=== PATIENT | male | born 1960 | race Caucasian/White ===

== ENCOUNTER → 2017-10-06 | Day surgery (SDC) | payer MEDICARE ==
[~2017-10-06] MED LIST: ALBU8I INH; AMLO5 PO; ASPI81TA82 PO; ATOR10 PO; CIPR500T4 PO; COUM5TAB PO; ENOX80P SQ; FOLI1TAB PO; GLIM2TAB PO; HYDR-3580 PO; LISI40TA PO; METH2.5 PO; PRED5 PO; PROPOFOL 500 MG/50 ML BTL IV ONE; Z.0.WHEELELR
--- NOTE | 2017-10-06 10:33 | GIPROC ---
[facility] [address] [facility], [address] COLONOSCOPY PROCEDURE REPORT EXAM DATE: 10/06/2017 PATIENT NAME: Shawn Guerrero MR #: [id number] BIRTHDATE: 1960 ENDOSCOPIST: Taiwo Mariscal MD ORDER #: [id number] STERILE SUPERVISOR: David Rivera RN STATUS: outpatient INDICATIONS: The patient is a 57 yr old male here for a colonoscopy due to average risk patient for colon cancer PROCEDURE PERFORMED: Colonoscopy with polypectomy MEDICATIONS: None and Per Anesthesia. PREP QUALITY: fair ESTIMATED BLOOD LOSS: None CONSENT: The patient understands the risks and benefits of the procedure and understands that these risks include, but are not limited to: sedation, allergic reaction, infection, perforation and/or bleeding. Alternative means of evaluation and treatment include, among others: physical exam, x-rays, and/or surgical intervention. The patient elects to proceed with this endoscopic procedure. medical equipment was checked for proper function. Hand hygiene and appropriate measures for infection prevention was taken. After the risks, benefits and alternatives of the procedure were thoroughly explained, Informed consent was verified, confirmed and timeout was successfully executed by the treatment team. A digital exam revealed no abnormalities of the rectum The EC-3890Li ([id number]) endoscope was introduced through the anus and advanced to the cecum, which was identified by both the appendix and ileocecal valve. The instrument was then slowly withdrawn as the colon was fully examined. COLON FINDINGS: Two large medium sized smooth sessile polyps were found in the proximal transverse colon and sigmoid colon. A polypectomy was performed using snare cautery. The resection was complete and the polyp tissue was completely retrieved. The colon mucosa was otherwise normal. Retroflexed views revealed no abnormalities The scope was then completely withdrawn from the patient and the procedure terminated. PROCEDURE WITHDRAWAL TIME:11.7minutes ADVERSE EVENTS: There were no complications. IMPRESSIONS: 1. Two large medium sized sessile polyps were found in the proximal transverse colon and sigmoid colon; polypectomy was performed using snare cautery 2. The colon mucosa was otherwise normal 3. Retroflexed views revealed no abnormalities 4. Revealed no abnormalities of the rectum RECOMMENDATIONS: 1. Await biopsy results. Biopsy results will not be ready for 7-10 days. If you don't hear from us in two weeks, call our office for results. 2. Follow-up: GI Clinic PRN 3. Yearly hemoccult 4. High fiber diet RECALL: Return 3 years Colonoscopy Taiwo Mariscal MD eSigned: Taiwo Mariscal MD 10/06/2017 10:33 AM cc: shreyas renner M.D and Everardo Sanz [facility] [place]
--- NOTE | 2017-10-06 10:36 | GIPROC ---
[facility] [address] [facility], [id number] EGD PROCEDURE REPORT EXAM DATE: 10/06/2017 PATIENT NAME: Shawn Guerrero MR #: [id number] BIRTHDATE: 1960 ATTENDING: Taiwo Mariscal MD ORDER #: [id number] PRETZEL TWISTER: David Rivera RN STATUS: outpatient INDICATIONS: The patient is a 57 yr old male here for an EGD due to epigastric abdominal pain PROCEDURE PERFORMED: EGD w/ biopsy MEDICATIONS: None, Per Anesthesia, None, and Per Anesthesia. TOPICAL ANESTHETIC: CONSENT: The patient understands the risks and benefits of the procedure and understands that these risks include, but are not limited to: sedation, allergic reaction, infection, perforation and/or bleeding. Alternative means of evaluation and treatment include, among others: physical exam, x-rays, and/or surgical intervention. The patient elects to proceed with this endoscopic procedure. medical equipment was checked for proper function. Hand hygiene and appropriate measures for infection prevention was taken. After the risks, benefits and alternatives of the procedure were thoroughly explained, Informed consent was verified, confirmed and timeout was successfully executed by the treatment team. The patient was anesthetized with topical anesthesia and the EC-3890Li ([id number]) endoscope was introduced through the mouth and advanced to the second portion of the duodenum. Retroflexed views revealed no abnormalities The gastroscope was then slowly withdrawn and removed. ESOPHAGUS: There was LA Class A esophagitis noted. Multiple biopsies were performed. The endoscopy was otherwise normal. STOMACH: There was moderate and erosive gastritis in the gastric body. Multiple biopsies were performed. ADVERSE EVENTS: There were no complications. IMPRESSIONS: 1. There was LA Class A esophagitis noted; multiple biopsies were performed 2. Normal endoscopy otherwise 3. There was gastritis in the gastric body; multiple biopsies were performed 4. Retroflexed views revealed no abnormalities RECOMMENDATIONS: 1. Await biopsy results. Biopsy results will not be ready for 7-10 days. If you don't hear from us in two weeks, call our office for biopsy results. 2. Avoid NSAIDS 3. Follow-up: GI clinic 3 week(s) PATIENT CONDITION: stable DISPOSITION: Home REPEAT EXAM: Taiwo Mariscal MD eSigned: Taiwo Mariscal MD 10/06/2017 10:36 AM cc: shreyas Sanz [facility] [place] PATIENT NAME: Shawn Guerrero MR#: [id number]
== END | disposition home or self-care (01) ==
LOC: ESDC 07:16
PROVIDERS: ATTEND Internal Medicine Gastroenterology
DX: Z12.11 Encounter for screening for malignant neoplasm of colon (principal); K63.5 Polyp of colon; R10.9 Unspecified abdominal pain; K20.9 Esophagitis, unspecified; K29.70 Gastritis, unspecified, without bleeding; Z79.84 Long term (current) use of oral hypoglycemic drugs
CPT/HCPCS: 82948; 88305; 88312

== ENCOUNTER 2018-06-07 08:16 | Inpatient (IN) ==
[2018-06-07] MEDS ORDERED: Vancomycin Inj 1 GM/200 ML PIGGYBACK IV.SIG ONE (10:47)
[2018-06-07 11:40] LABS: Hematocrit 41.1 % (39.0-51.0); Hemoglobin 13.3 gm/dL (13.0-17.0); Mean Corpuscular HGB Conc 32.3 % (32.0-36.0); Mean Corpuscular Hemoglobin 19.2 pg (27.0-34.0); Mean Corpuscular Volume 59.5 fL (80.0-100.0); Mean Platelet Volume 8.5 fL (7.0-11.0); Platelet Count 256 th/mm3 (150-450); Red Blood Count 6.91 mil/mm3 (4.50-5.90); Red Cell Distribution Width 18.8 % (11.6-17.2); White Blood Count 8.5 th/mm3 (4.0-11.0)
--- NOTE | 2018-06-07 11:40 | XR ---
EXAM DATE: 06/07/2018 11:28 AM EDT AGE/SEX: 58 years / Male INDICATIONS: Fever. Patient states no chest complaints. CLINICAL DATA: This is the patient's initial encounter. Patient reports that signs and symptoms have been present for 3 days and indicates a pain score of 0/10. MEDICAL/SURGICAL HISTORY: Diabetes mellitus type II. Cerebrovascular disease. Cardiovascular di sease Hypertension. . Coronary artery stent. Arterial stents tmes two right [place] [facility] [place] . FINDINGS: A single AP view of the chest demonstrates the lungs to be symmetrically aerated without evidence of mass, infiltrate or effusion. The cardiomediastinal contours are mildly prominent. Osseous structure s are intact. CONCLUSION: Mildly prominent cardiomediastinal contour. No focal infiltrate or effusion. Electronically signed by: Shawn Bloom MD 06/07/2018 11:38 AM EDT
[2018-06-07 11:44] LABS: INR 1.2 Ratio; Prothrombin Time 12.1 sec (9.8-11.6)
--- NOTE | 2018-06-07 11:46 | XR ---
EXAM DATE: 06/07/2018 11:32 AM EDT AGE/SEX: 58 years / Male INDICATIONS: Right foot ulcer. Open ulcer wound at heel that is painful per patient. CLINICAL DATA: This is the patient's initial encounter. Patient reports that signs and symptoms have been present for 3 days and indicates a pain score of 5/10. MEDICAL/SURGICAL HISTORY: Diabetes mellitus type II. . Coronary artery stent. Arterial stents t mes two right [place] [facility] [place][id number]/03/[place]. . FINDINGS: There is amputation of the third toe and the fifth toe and distal fifth metatarsal. Bones are osteope geni. No acute fracture. No dislocation. Soft tissue ulceration on plantar aspect of foot below the an terior calcaneus. CONCLUSION: Soft tissue ulceration on plantar aspect of foot. Amputation of the third and fifth toes as above. No acute bony abnormality. Remote proximal fifth metatarsal fracture. Electronically signed by: Shawn Bloom MD 06/07/2018 11:45 AM EDT
[2018-06-07 11:56] LABS: Alanine Aminotransferase 20 U/L (12-78); Albumin 3.4 g/dL (3.4-5.0); Anion Gap 11 meq/L (5-15); Aspartate Aminotransferase 14 U/L (15-37); Blood Urea Nitrogen 45 mg/dL (7-18); Calcium 8.5 mg/dL (8.5-10.1); Carbon Dioxide 24.9 meq/L (21.0-32.0); Chloride 93 meq/L (98-107); Glomerular Filtration Rate 37 mL/min (>89); Glucose,Random 331 mg/dL (74-106); Magnesium 1.4 mg/dL (1.5-2.5); Potassium 4.2 meq/L (3.5-5.1); Sodium 129 meq/L (136-145)
[2018-06-07 11:58] LABS: Alkaline Phosphatase 70 U/L (45-117); Total Protein 7.5 g/dL (6.4-8.2)
--- NOTE | 2018-06-07 11:58 | ED ---
HPI General Chief complaint: Skin/Abscess/Foreign Body Stated complaint: foot pain Time Seen by Provider: 06/07/18 10:27 Source: patient and RN notes reviewed Mode of arrival: ambulatory History of Present Illness HPI narrative: 58yM presenting with right foot infection. The patient states that he's had a "sore" on the right lateral part of his foot for the past 3 months; he saw a fountain operator several months ago but does not remember whom. He reports tactile fevers/ chills, fatigue, and pain to the right foot. He has a history of diabetes but has not checked his FSBG for the past several days. Related Data Home Medications Medication Instructions Recorded Confirmed carvedilol 06/07/18 cilostazol 10 mg PO BID 06/07/18 06/07/18 nifedipine 60 mg PO DAILY 06/07/18 06/07/18 prednisone 06/07/18 pregabalin [Lyrica] 5 mg PO TID 06/07/18 06/07/18 rivaroxaban [Xarelto] 2 mg PO DAILY 06/07/18 06/07/18 rosuvastatin 4 mg PO DAILY 06/07/18 06/07/18 tramadol 50 mg PO TID 06/07/18 06/07/18 Allergies Allergy/AdvReac Type Severity Reaction Status Date / Time penicillin G Allergy Severe Hives Verified 06/07/18 11:12 Review of Systems Except as stated in HPI: all other systems reviewed are negative Constitutional Reports fever(s) Eyes Denies blurry vision ENT Denies nasal congestion Cardiovascular Denies chest pain Respiratory Denies cough Gastrointestinal Denies nausea and Denies vomiting Musculoskeletal Denies back pain Neurologic Denies confusion Psychiatric Denies confusion PMFSH History History Provided By: Patient Medical History Medical History Diabetes mellitus (Acute) HTN (hypertension) (Acute) Hyperlipemia (Acute) Neuropathy (Acute) Surgical History Surgical History H/O hernia repair (Acute) Status post right foot surgery (Acute) Social History Social History Substance History: No History of Abuse Second Hand Smoke Exposure: Yes Smoking Status: Current every day smoker Tobacco Type: Cigarettes How Often Do You Have a Drink Containing Alcohol: Never Recent Travel in [facility] within the Last 8 Weeks: No Recent Out of Country Travel within the Last 8 Weeks: No Immunization History Tetanus Immunization: <5 Years Hx Influenza Vaccine This Season: Yes Exam Const General: healthy appearing and no acute distress [facility] Head: normocephalic and atraumatic Face and sinus: normal facial exam Eyes General: appearance normal, both eyes and all related structures Pupils: PERRL Chest Chest: normal inspection of the chest Resp Effort & Inspection: normal respiratory effort Auscultation: no rhonchi and no wheezes Cardio Rate: tachycardic Rhythm: regular rhythm GI Inspection: non-distended Palpation: soft and nontender Other: Large easily reducible ventral hernia Skin General: no rashes or lesions noted Neuro General: alert, awake, oriented x3 and no focal motor deficits Extrem Other: Unstageable 3 cm x 2 cm ulcer to right lateral foot Toes dusky and cool, monophasic dorsalis pedis Doppler signal, unable to find posterior tibial signal Psych Affect: normal affect Course Initial Documented Vital Signs Temperature 97.9 F 06/07/18 08:23 Pulse Rate 121 H 06/07/18 08:23 Respiratory Rate 20 06/07/18 08:23 Blood Pressure 141/72 H 06/07/18 08:23 Pulse Oximetry 97 06/07/18 08:23 Last Documented Vital Signs Temperature 97.9 F 06/07/18 08:23 Pulse Rate 110 H 06/07/18 12:00 Respiratory Rate 16 06/07/18 12:00 Blood Pressure 118/67 06/07/18 12:00 Pulse Oximetry 95 06/07/18 12:40 Medical Decision Making [facility] Narrative Medical decision making narrative: Assessment: 58yM presenting with right foot wound, fever, tachycardia Plan: EKG and monitor Sepsis workup, including lactate and blood cultures CXR X-ray foot Vancomycin IV fluids Addendum: Patient found to have bandemia, hyponatremia, acute kidney injury, and meets SIRS criteria. Case discussed with Dr. Nielsen, who will see the patient. Differential Diagnosis Differential Diagnosis: Differential diagnosis includes, but is not limited to: sepsis, osteomyelitis, diabetic foot ulcer, DKA Lab Data Lab results reviewed: Yes I reviewed the patient's lab results. Result diagrams: 06/07/18 11:00 08/07/18 11:00 Lab Results 06/07/18 06/07/18 06/07/18 Range/Units 11:00 11:00 11:00 WBC 8.5 (4.0-11.0) th/mm3 RBC 6.91 H (4.50-5.90) mil/mm3 Hgb 13.3 (13.0-17.0) gm/dL Hct 41.1 (39.0-51.0) % MCV 59.5 L (80.0-100.0) fL MCH 19.2 L (27.0-34.0) pg MCHC 32.3 (32.0-36.0) % RDW 18.8 H (11.6-17.2) % Plt Count 256 (150-450) th/mm3 MPV 8.5 (7.0-11.0) fL Prelim Diff (Auto) Manual diff required WBC Differential Manual diff final Seg Neuts % (Manual) 23 (16-70) % Band Neuts % (Manual) 31 H (0-6) % Lymphocytes % (Manual) 13 (9-44) % Monocytes % (Manual) 17 H (0-8) % Eosinophils % (Manual) 3 (0-4) % Metamyelocytes % (Man) 10 H (0-1) % Myelocytes % (Man) 1 H (0-0) % Promyelocytes % (Man) 2 H (0-0) % Abs Neuts (Manual) 5.7 (1.8-7.7) th/mm3 Nucleated RBCs/100 WBC 1 H (0-0) /100 WBC Differential Comment . Toxic Granulation 2+ H (None) Toxic Vacuolation Present H (None) Dohle Bodies Present H (None) Platelet Estimate Normal (Normal) Platelet Morphology Clumped H (Normal) PT 12.1 H (9.8-11.6) sec INR 1.2 Ratio Sodium 129 L (136-145) meq/L Potassium 4.2 (3.5-5.1) meq/L Chloride 93 L (98-107) meq/L Carbon Dioxide 24.9 (21.0-32.0) meq/L Anion Gap 11 (5-15) meq/L BUN 45 H (7-18) mg/dL Creatinine 1.89 H (0.60-1.30) mg/dL Estimated GFR 37 L (>89) mL/min Random Glucose 331 H (74-106) mg/dL Lactic Acid (0.4-2.0) mmol/L Calcium 8.5 (8.5-10.1) mg/dL Magnesium 1.4 L (1.5-2.5) mg/dL Total Bilirubin 1.2 H (0.2-1.0) mg/dL AST 14 L (15-37) U/L ALT 20 (12-78) U/L Alkaline Phosphatase 70 (45-117) U/L Total Protein 7.5 (6.4-8.2) g/dL Albumin 3.4 (3.4-5.0) g/dL 06/07/18 Range/Units 11:00 WBC (4.0-11.0) th/mm3 RBC (4.50-5.90) mil/mm3 Hgb (13.0-17.0) gm/dL Hct (39.0-51.0) % MCV (80.0-100.0) fL MCH (27.0-34.0) pg MCHC (32.0-36.0) % RDW (11.6-17.2) % Plt Count (150-450) th/mm3 MPV (7.0-11.0) fL Prelim Diff (Auto) WBC Differential Seg Neuts % (Manual) (16-70) % Band Neuts % (Manual) (0-6) % Lymphocytes % (Manual) (9-44) % Monocytes % (Manual) (0-8) % Eosinophils % (Manual) (0-4) % Metamyelocytes % (Man) (0-1) % Myelocytes % (Man) (0-0) % Promyelocytes % (Man) (0-0) % Abs Neuts (Manual) (1.8-7.7) th/mm3 Nucleated RBCs/100 WBC (0-0) /100 WBC Differential Comment Toxic Granulation (None) Toxic Vacuolation (None) Dohle Bodies (None) Platelet Estimate (Normal) Platelet Morphology (Normal) PT (9.8-11.6) sec INR Ratio Sodium (136-145) meq/L Potassium (3.5-5.1) meq/L Chloride (98-107) meq/L Carbon Dioxide (21.0-32.0) meq/L Anion Gap (5-15) meq/L BUN (7-18) mg/dL Creatinine (0.60-1.30) mg/dL Estimated GFR (>89) mL/min Random Glucose (74-106) mg/dL Lactic Acid 1.8 (0.4-2.0) mmol/L Calcium (8.5-10.1) mg/dL Magnesium (1.5-2.5) mg/dL Total Bilirubin (0.2-1.0) mg/dL AST (15-37) U/L ALT (12-78) U/L Alkaline Phosphatase (45-117) U/L Total Protein (6.4-8.2) g/dL Albumin (3.4-5.0) g/dL Imaging Data Radiologist's impression: Chest X-Ray 06/07/18 10:46 CONCLUSION: Mildly prominent cardiomediastinal contour. No focal infiltrate or effusion. Foot X-Ray 06/07/18 10:46 CONCLUSION: Soft tissue ulceration on plantar aspect of foot. Amputation of the third and fifth toes as above. No acute bony abnormality. Remote proximal fifth metatarsal fracture. ECG Data Attestation: I personally reviewed and interpreted this ECG as follows: Interpretation: Rate: 117 BPM Rhythm: Sinus with PACs [place]: Normal Intervals: RBBB, QTc 454 ms Q waves: III T waves: Inversions in V2, V3, V4, I, aVL ST segments: No significant elevations or depressions Impression: Abnormal EKG, no changes as compared to EKG from 12/02/2015. Discharge Plan Physicians Team ED Provider: Meenakshi Moy Primary Care Provider: Gabriel Ariza Rxs /Orders / Referrals /Forms Prescriptions: No Action tramadol 50 mg Tablet 50 mg PO TID RF: 0 carvedilol RF: 0 prednisone RF: 0 cilostazol 50 mg Tablet 10 mg PO BID RF: 0 nifedipine 60 mg Tablet Extended Release 60 mg PO DAILY RF: 0 rosuvastatin 5 mg Tablet 4 mg PO DAILY RF: 0 pregabalin [Lyrica] 25 mg Capsule 5 mg PO TID RF: 0 rivaroxaban [Xarelto] 10 mg Tablet 2 mg PO DAILY RF: 0 Discharge Interventions Interventions: Vital Signs Last Done: 06/07/18 12:00 Status ED Status: With Doctor
[2018-06-07] MEDS ORDERED: Sod Chloride 0.9% Inj 1,000 ML IV.SIG ONE ×2 (12:04)
[2018-06-07] MEDS ORDERED: Magnesium Sulfate Inj 2 GM in Sodium Chlor 0.9% Inj 96 ML IV.SIG ONE (12:07)
[2018-06-07 12:20] LABS: Dohle Bodies Present; Eosinophils 3 % (0-4); Lymphocytes 13 % (9-44); Metamyelocytes 10 % (0-1); Monocytes 17 % (0-8); Myelocytes 1 % (0-0); Platelet Estimate Normal (Normal); Platelet Morphology Clumped (Normal); Promyelocyte 2 % (0-0); Tallied Nucleated RBC 1 (0-0); Toxic Granulation 2+; Toxic Vacuolation Present
[2018-06-07] MEDS ORDERED: Acetaminophen 325 MG Tablet PO PRN (13:53)
[2018-06-07] MEDS ORDERED: Dextrose 50% in Water 50 ML Vial IV.PUSH PRN (13:57)
--- NOTE | 2018-06-07 14:25 | P.HP ---
<Melissa Rosales - Last Filed: 06/07/18 16:22> History of Present Illness Primary Care Physician: Gabriel Ariza Chief Complaint: foot wound History of Present Illness: This is a 58-year-old male patient with past medical history which includes hypertension, COPD, morbid obesity, diabetes mellitus with diabetic neuropathy, rheumatoid arthritis on methotrexate and daily steroid use, hyperlipidemia, GERD , lumbar degenerative disc disease with radiculopathy and spondylosis, major depression, obstructive sleep apnea, PAD with 2 stents placed RLE by Dr. Melara 2016, and history of osteomyelitis of the right foot with third and fifth toe amputation [address] Khoury. Patient presenting with right foot infection. The patient reports that he's had a "sore" on the right lateral part of his foot for the past 3 months. Patient reports that he saw a head of loss prevention he believes was Dr. Khoury in the past, but not recently. Patient endorses soreness/pain in the right foot for the past 3-4 mouths. Patient is now also having fevers/ chills, fatigue, and worse pain to the right foot for the past two days. Patient denies chest pain or SOB. PMH: hypertension, COPD, morbid obesity, diabetes mellitus with diabetic neuropathy, rheumatoid arthritis on methotrexate and daily steroid use, hyperlipidemia, GERD , lumbar degenerative disc disease with radiculopathy and spondylosis, major depression, obstructive sleep apnea, PAD, and history of osteomyelitis of the right foot with third and fifth toe amputation [address] Khoury. PSxH: Colonoscopy, EGD, right lower extremity 2 stents [address] Melara, right foot amputation of third and fifth toe, ventral hernia repair Social history: Denies EtOH use Current tobacco use 2 PPD for the past 46 years Denies illicit drug use FMH: Reviewed and noncontributory - Diagnosis (1) Diabetic foot infection (2) Acute kidney injury Review of Systems All other systems reviewed negative except as stated in HPI [facility] - History History Provided By: Patient - Medical History Medical History: Medical History (Last Reviewed 06/07/18 @ 12:02 by Meenakshi Moy DO) Diabetes mellitus HTN (hypertension) Hyperlipemia Neuropathy - Surgical History Surgical History: Surgical History (Last Reviewed 06/07/18 @ 12:02 by Meenakshi Ringhauser, DO) H/O hernia repair Status post right foot surgery - Tobacco History Second Hand Smoke Exposure: Yes Tobacco Use In Past 30 Days: Yes Smoking Status: Current every day smoker Tobacco Type: Cigarettes - Alcohol History How Often Do You Have a Drink Containing Alcohol: Never - Substance Use History Substance History: No History of Abuse - Travel History Recent Travel in the [place] Within the Last 8 Weeks: No Recent Travel Out of the Country Within the Last 8 Weeks: No - Immunization History Tetanus Immunization: <5 Years Hx Influenza Vaccine This Season: Yes Medications and Allergies Allergies Allergy/AdvReac Type Severity Reaction Status Date / Time penicillin G Allergy Severe Hives Verified 06/07/18 11:12 Home Medications Medication Instructions Recorded Confirmed Type carvedilol 12.5 mg PO BID 06/07/18 06/07/18 History cilostazol PO BID 06/07/18 History metformin 1,000 mg PO BID 06/07/18 06/07/18 History nifedipine 60 mg PO DAILY 06/07/18 06/07/18 History pantoprazole [Protonix] 40 mg PO DAILY 06/07/18 06/07/18 History prednisone 5 mg PO AC DINNER 06/07/18 06/07/18 History prednisone 10 mg PO DAILY 06/07/18 06/07/18 History pregabalin [Lyrica] 50 mg PO BID 06/07/18 06/07/18 History rivaroxaban [Xarelto] 20 mg PO DAILY 06/07/18 06/07/18 History rosuvastatin 40 mg PO DAILY 06/07/18 06/07/18 History tramadol 50 mg PO TID 06/07/18 06/07/18 History Active Medications: Active Medications Acetaminophen (Tylenol) 650 mg PO Q4H PRN PRN Reason: Temp > 100.4 Al Hydroxide/Mg Hydroxide (Milk Of Magnesia Liq) 30 ml PO Q12H PRN PRN Reason: Mild Constipation Dextrose (D50w Vial) 50 ml IV.PUSH UNSCH PRN PRN Reason: PER HYPOGLYCEMIA PROTOCOL Glucagon (Glucagon Inj) 1 mg OTHER PRN PRN PRN Reason: for Hypoglycemia Protocol Insulin Aspart (Novolog Insulin Correctional Sugar Inj) 0 unit SQ ACHS [facility]; Protocol Senna/Docusate Sodium (Mona-Colace) 1 tab PO BID [facility] Exam Vital signs: Vital Signs 06/07/18 08:23 06/07/18 08:51 06/07/18 11:59 Temperature 97.9 F Pulse Rate 121 H 116 H 120 H Respiratory Rate 20 24 Blood Pressure 141/72 H Pulse Oximetry 97 98 97 06/07/18 12:00 06/07/18 12:40 Temperature Pulse Rate 110 H Respiratory Rate 16 Blood Pressure 118/67 Pulse Oximetry 97 95 Intake & Output 06/06/18 06/07/18 06/07/18 18:59 06:59 18:59 Weight 99.79 kg Narrative: GENERAL: This is a well-nourished, well-developed patient, in no apparent distress. SKIN: nonhealing deep ulceration with what appears to be necrotic tissue present to posterior lateral aspect of the right foot with edema present. No drainage present CARDIOVASCULAR: Regular rate and rhythm RESPIRATORY: Clear to auscultation. Breath sounds equal bilaterally. GASTROINTESTINAL: Abdomen soft, non-tender, nondistended. Normal active bowel sounds MUSCULOSKELETAL: Extremities without clubbing, cyanosis, or edema. NEURO: Alert & Oriented x4 to person, place, time, situation. Moves all ext x4 Results - Labs CBC & Chem 7: 06/07/18 11:00 06/07/18 11:00 Labs: Laboratory Results - last 24 hr 06/07/18 06/07/18 06/07/18 11:00 11:00 11:00 WBC 8.5 RBC 6.91 H Hgb 13.3 Hct 41.1 MCV 59.5 L MCH 19.2 L MCHC 32.3 RDW 18.8 H Plt Count 256 MPV 8.5 Prelim Diff (Auto) Manual diff required WBC Differential Manual diff final Seg Neuts % (Manual) 23 Band Neuts % (Manual) 31 H Lymphocytes % (Manual) 13 Monocytes % (Manual) 17 H Eosinophils % (Manual) 3 Metamyelocytes % (Man) 10 H Myelocytes % (Man) 1 H Promyelocytes % (Man) 2 H Abs Neuts (Manual) 5.7 Nucleated RBCs/100 WBC 1 H Differential Comment . Toxic Granulation 2+ H Toxic Vacuolation Present H Dohle Bodies Present H Platelet Estimate Normal Platelet Morphology Clumped H PT 12.1 H INR 1.2 Sodium 129 L Potassium 4.2 Chloride 93 L Carbon Dioxide 24.9 Anion Gap 11 BUN 45 H Creatinine 1.89 H Estimated GFR 37 L Random Glucose 331 H Lactic Acid Calcium 8.5 Magnesium 1.4 L Total Bilirubin 1.2 H AST 14 L ALT 20 Alkaline Phosphatase 70 Total Protein 7.5 Albumin 3.4 06/07/18 11:00 WBC RBC Hgb Hct MCV MCH MCHC RDW Plt Count MPV Prelim Diff (Auto) WBC Differential Seg Neuts % (Manual) Band Neuts % (Manual) Lymphocytes % (Manual) Monocytes % (Manual) Eosinophils % (Manual) Metamyelocytes % (Man) Myelocytes % (Man) Promyelocytes % (Man) Abs Neuts (Manual) Nucleated RBCs/100 WBC Differential Comment Toxic Granulation Toxic Vacuolation Dohle Bodies Platelet Estimate Platelet Morphology PT INR Sodium Potassium Chloride Carbon Dioxide Anion Gap BUN Creatinine Estimated GFR Random Glucose Lactic Acid 1.8 Calcium Magnesium Total Bilirubin AST ALT Alkaline Phosphatase Total Protein Albumin - Imaging Impressions Chest X-Ray 06/07/18 10:46 CONCLUSION: Mildly prominent cardiomediastinal contour. No focal infiltrate or effusion. Foot X-Ray 06/07/18 10:46 CONCLUSION: Soft tissue ulceration on plantar aspect of foot. Amputation of the third and fifth toes as above. No acute bony abnormality. Remote proximal fifth metatarsal fracture. Caprini VTE Risk Assessment Caprini VTE Risk Assessment: Moderate/High Risk (score >= 2) Caprini Risk Assessment Model: Point Value = 1 Point Value = 2 Point Value = 3 Point Value = 5 Age 41-60 Minor surgery BMI > 25 kg/m2 Swollen legs Varicose veins or History of unexplained or recurrent spontaneous Oral contraceptives or hormone replacement Sepsis (< 1 month) Serious lung disease, including pneumonia (< 1 month) Abnormal pulmonary function Acute myocardial infarction Congestive heart failure (< 1 month) History of inflammatory bowel disease Medical patient at bed rest Age 61-74 Arthroscopic surgery Major open surgery (> 45 min) Laparoscopic surgery (> 45 min) Malignancy Confined to bed (> 72 hours) Immobilizing plaster cast Central venous access Age >= 75 History of VTE Family history of VTE Factor V Leiden Prothrombin [id number] Lupus anticoagulant Anticardiolipin antibodies Elevated serum homocysteine Heparin-induced thrombocytopenia Other congenital or acquired thrombophilia Stroke (< 1 month) Elective arthroplasty Hip, pelvis, or leg fracture Acute spinal cord injury (< 1 month) Prophylaxis Regimen: Total Risk Factor Score Risk Level Prophylaxis Regimen 0-1 Low Early ambulation 2 Moderate Order ONE of the following: *Sequential Compression Device (SCD) *Heparin 5000 units SQ BID 3-4 Higher Order ONE of the following medications: *Heparin 5000 units SQ TID *Enoxaparin/Lovenox 40 mg SQ daily (WT < 150 kg, CrCl > 30 mL/min) *Enoxaparin/Lovenox 30 mg SQ daily (WT < 150 kg, CrCl > 10-29 mL/min) *Enoxaparin/Lovenox 30 mg SQ BID (WT < 150 kg, CrCl > 30 mL/min) AND/OR *Sequential Compression Device (SCD) 5 or more Highest Order ONE of the following medications: *Heparin 5000 units SQ TID (Preferred with Epidurals) *Enoxaparin/Lovenox 40 mg SQ daily (WT < 150 kg, CrCl > 30 mL/min) *Enoxaparin/Lovenox 30 mg SQ daily (WT < 150 kg, CrCl > 10-29 mL/min) *Enoxaparin/Lovenox 30 mg SQ BID (WT < 150 kg, CrCl > 30 mL/min) AND *Sequential Compression Device (SCD) Assessment and Plan - Assessment (1) Diabetic foot infection Code(s): E11.628 - Type 2 diabetes mellitus with other skin complications; L08.9 - Local infection of the skin and subcutaneous tissue, unspecified Status: Acute Plan: This is a 58-year-old male patient with past medical history which includes hypertension, morbid obesity, diabetes mellitus with diabetic neuropathy, rheumatoid arthritis on methotrexate and daily steroid use, hyperlipidemia, GERD , lumbar degenerative disc disease with radiculopathy and spondylosis, major depression, obstructive sleep apnea, PAD, and history of osteomyelitis of the right foot with third and fifth toe amputation [address] Khoury. Patient presenting with right foot infection. The patient states that he's had a "sore" on the right lateral part of his foot for the past 3 months; he saw a head of loss prevention several months ago but does not remember whom. He reports tactile fevers/ chills, fatigue, and pain to the right foot. He has a history of diabetes but has not checked his FSBG for the past several days. Diabetic foot wound concerning for osteomyelitis Patient has a history of osteomyelitis of the right foot with third and fifth toe amputation [address] Khoury. X-ray of foot reviewed and reveals: Soft tissue ulceration on plantar aspect of foot. Amputation of the third and fifth toes as above. No acute bony abnormality. Remote proximal fifth metatarsal fracture. MRI ordered Patient given vancomycin emergency department Consult podiatry Acute kidney injury Patient's baseline creatinine around 0.78 with estimated GFR 90-100 Patient received 2 L IVF in ER continue NS IVF recheck BMP in AM hypertension Continue patient's home nifedipine Monitor BP diabetes mellitus with diabetic neuropathy, diabetic diet accu checks ACHS PAD S/P stents placed to the RLE [address] Melara Continue patient's home Xarelto 20 mg daily rheumatoid arthritis on methotrexate and daily steroid use, continue patient home steroids hyperlipidemia Continue patient's home statin GERD, Continue patient's home Protonix DVT prophylaxis with SCDs, patient also on Xarelto (2) Acute kidney injury Code(s): N17.9 - Acute kidney failure, unspecified Status: Acute <Nicola Nielsen - Last Filed: 06/07/18 22:14> History of Present Illness Primary Care Physician: Gabriel Ariza History of Present Illness: The exam, history, and the medical decision-making described in the above note were completed with the assistance of the mid-level provider. I reviewed and agree with the findings presented. I attest that I had a [id number] encounter with the patient on the same day, and personally performed and documented my assessment and findings in the medical record. diabetic foot ulceration. right foot. r/o osteo. mri pending. podiatry consulted. wound appears to need debridement. basal insulin and titrate. ssi. - Diagnosis (1) Diabetic foot infection (2) Acute kidney injury [facility] - Medical History Medical History: Medical History (Last Reviewed 06/07/18 @ 12:02 by Meenakshi Moy DO) Diabetes mellitus HTN (hypertension) Hyperlipemia Neuropathy - Surgical History Surgical History: Surgical History (Last Reviewed 06/07/18 @ 12:02 by Meenakshi Moy DO) H/O hernia repair Status post right foot surgery Medications and Allergies Active Medications: Active Medications Acetaminophen (Tylenol) 650 mg PO Q4H PRN PRN Reason: Temp > 100.4 Al Hydroxide/Mg Hydroxide (Milk Of Magnesia Liq) 30 ml PO Q12H PRN PRN Reason: Mild Constipation Atorvastatin Calcium (Lipitor) 80 mg PO DAILY [facility] Carvedilol (Coreg) 12.5 mg PO BID [facility] Last Admin: 06/07/18 21:57 Dose: 12.5 mg Cilostazol (Pletal) 50 mg PO BID [facility] Last Admin: 06/07/18 21:57 Dose: 50 mg Dextrose (D50w Vial) 50 ml IV.PUSH UNSCH PRN PRN Reason: PER HYPOGLYCEMIA PROTOCOL Glucagon (Glucagon Inj) 1 mg OTHER PRN PRN PRN Reason: for Hypoglycemia Protocol Sodium Chloride (Ns Inj) 1,000 mls @ 75 mls/hr IV.CONT .[id number] [facility] Last Admin: 06/07/18 17:42 Dose: 75 mls/hr Insulin Aspart (Novolog Insulin Correctional Sugar Inj) 0 unit SQ ACHS [facility]; Protocol Last Admin: 06/07/18 22:07 Dose: 7 unit Insulin Detemir (Levemir Inj) 10 unit SQ BID [facility] Last Admin: 06/07/18 22:07 Dose: 10 unit Nicotine (Habitrol 14 Mg Patch.24 Hr) 1 patch T-DERMAL DAILY [facility] Last Admin: 06/07/18 17:42 Dose: 1 patch Nifedipine (Procardia Xl) 60 mg PO DAILY [facility] Ondansetron HCl (Zofran Inj) 4 mg IV.PUSH Q6H PRN PRN Reason: NAUSEA OR VOMITING Last Admin: 06/07/18 16:11 Dose: 4 mg Pantoprazole Sodium (Protonix) 40 mg PO DAILY [facility] Patch Removal (Remove Old Patch) 0 each T-DERMAL DAILY [facility] Prednisone (Deltasone) 5 mg PO AC DINNER [facility] Prednisone (Deltasone) 10 mg PO DAILY [facility] Pregabalin (Lyrica) 50 mg PO BID [facility] Last Admin: 06/07/18 21:57 Dose: 50 mg Rivaroxaban (Xarelto) 20 mg PO DAILY [facility] Senna/Docusate Sodium (Mona-Colace) 1 tab PO BID [facility] Last Admin: 06/07/18 21:57 Dose: 1 tab Tramadol HCl (Ultram) 50 mg PO TID [facility] Last Admin: 06/07/18 19:05 Dose: 50 mg Exam Vital signs: Vital Signs 06/07/18 08:23 06/07/18 08:51 06/07/18 11:59 Temperature 97.9 F Pulse Rate 121 H 116 H 120 H Respiratory Rate 20 24 Blood Pressure 141/72 H Pulse Oximetry 97 98 97 06/07/18 12:00 06/07/18 12:40 06/07/18 15:25 Temperature 98.5 F Pulse Rate 110 H 113 H Respiratory Rate 16 20 Blood Pressure 118/67 143/74 H Pulse Oximetry 97 95 94 L 06/07/18 16:00 06/07/18 20:00 Temperature 98.6 F 98.8 F Pulse Rate 110 H 113 H Respiratory Rate 20 19 Blood Pressure 129/70 133/70 Pulse Oximetry 94 L 92 L Intake & Output 06/07/18 06/07/18 06/08/18 06:59 18:59 06:59 Weight 99.79 kg Other: Date of Last Bowel Movement 06/07/18 Results - Labs CBC & Chem 7: 06/07/18 11:00 06/07/18 11:00 Labs: Laboratory Results - last 24 hr 06/07/18 06/07/18 06/07/18 11:00 11:00 11:00 WBC 8.5 RBC 6.91 H Hgb 13.3 Hct 41.1 MCV 59.5 L MCH 19.2 L MCHC 32.3 RDW 18.8 H Plt Count 256 MPV 8.5 Prelim Diff (Auto) Manual diff required WBC Differential Manual diff final Seg Neuts % (Manual) 23 Band Neuts % (Manual) 31 H Lymphocytes % (Manual) 13 Monocytes % (Manual) 17 H Eosinophils % (Manual) 3 Metamyelocytes % (Man) 10 H Myelocytes % (Man) 1 H Promyelocytes % (Man) 2 H Abs Neuts (Manual) 5.7 Nucleated RBCs/100 WBC 1 H Differential Comment . Toxic Granulation 2+ H Toxic Vacuolation Present H Dohle Bodies Present H Platelet Estimate Normal Platelet Morphology Clumped H ESR PT 12.1 H INR 1.2 Sodium 129 L Potassium 4.2 Chloride 93 L Carbon Dioxide 24.9 Anion Gap 11 BUN 45 H Creatinine 1.89 H Estimated GFR 37 L POC Glucose Random Glucose 331 H Hemoglobin A1c Lactic Acid Calcium 8.5 Magnesium 1.4 L Total Bilirubin 1.2 H AST 14 L ALT 20 Alkaline Phosphatase 70 Total Protein 7.5 Albumin 3.4 Urine Color Urine Clarity Urine pH Ur Specific [place] Urine Protein Urine Glucose (UA) Urine Ketones Urine Occult Blood Urine Nitrate Urine Bilirubin Urine Ictotest Urine Urobilinogen Ur Leukocyte Esterase Urine RBC Urine WBC Ur Squamous Epith Cells Hyaline Casts Urine Mucus Micro UA Comment Urine Culture Comments 06/07/18 06/07/18 06/07/18 11:00 11:00 13:51 WBC RBC Hgb Hct MCV MCH MCHC RDW Plt Count MPV Prelim Diff (Auto) WBC Differential Seg Neuts % (Manual) Band Neuts % (Manual) Lymphocytes % (Manual) Monocytes % (Manual) Eosinophils % (Manual) Metamyelocytes % (Man) Myelocytes % (Man) Promyelocytes % (Man) Abs Neuts (Manual) Nucleated RBCs/100 WBC Differential Comment Toxic Granulation Toxic Vacuolation Dohle Bodies Platelet Estimate Platelet Morphology ESR PT INR Sodium Potassium Chloride Carbon Dioxide Anion Gap BUN Creatinine Estimated GFR POC Glucose 340 H Random Glucose Hemoglobin A1c 10.1 H Lactic Acid 1.8 Calcium Magnesium Total Bilirubin AST ALT Alkaline Phosphatase Total Protein Albumin Urine Color Urine Clarity Urine pH Ur Specific [place] Urine Protein Urine Glucose (UA) Urine Ketones Urine Occult Blood Urine Nitrate Urine Bilirubin Urine Ictotest Urine Urobilinogen Ur Leukocyte Esterase Urine RBC Urine WBC Ur Squamous Epith Cells Hyaline Casts Urine Mucus Micro UA Comment Urine Culture Comments 06/07/18 06/07/18 06/07/18 14:20 15:35 17:45 WBC RBC Hgb Hct MCV MCH MCHC RDW Plt Count MPV Prelim Diff (Auto) WBC Differential Seg Neuts % (Manual) Band Neuts % (Manual) Lymphocytes % (Manual) Monocytes % (Manual) Eosinophils % (Manual) Metamyelocytes % (Man) Myelocytes % (Man) Promyelocytes % (Man) Abs Neuts (Manual) Nucleated RBCs/100 WBC Differential Comment Toxic Granulation Toxic Vacuolation Dohle Bodies Platelet Estimate Platelet Morphology ESR 24 H PT INR Sodium Potassium Chloride Carbon Dioxide Anion Gap BUN Creatinine Estimated GFR POC Glucose 332 H Random Glucose Hemoglobin A1c Lactic Acid Calcium Magnesium Total Bilirubin AST ALT Alkaline Phosphatase Total Protein Albumin Urine Color [place] Urine Clarity Cloudy H Urine pH 5.0 Ur Specific [place] 1.023 Urine Protein 100 H Urine Glucose (UA) 500 or greater Urine Ketones Negative Urine Occult Blood Negative Urine Nitrate Negative Urine Bilirubin Negative Urine Ictotest Negative Urine Urobilinogen 4 or greater Ur Leukocyte Esterase Negative Urine RBC 1 Urine WBC 1 Ur Squamous Epith Cells 1 Hyaline Casts 16 Urine Mucus Few H Micro UA Comment Culture not ind Urine Culture Comments Culture not ind 06/07/18 21:58 WBC RBC Hgb Hct MCV MCH MCHC RDW Plt Count MPV Prelim Diff (Auto) WBC Differential Seg Neuts % (Manual) Band Neuts % (Manual) Lymphocytes % (Manual) Monocytes % (Manual) Eosinophils % (Manual) Metamyelocytes % (Man) Myelocytes % (Man) Promyelocytes % (Man) Abs Neuts (Manual) Nucleated RBCs/100 WBC Differential Comment Toxic Granulation Toxic Vacuolation Dohle Bodies Platelet Estimate Platelet Morphology ESR PT INR Sodium Potassium Chloride Carbon Dioxide Anion Gap BUN Creatinine Estimated GFR POC Glucose 250 H Random Glucose Hemoglobin A1c Lactic Acid Calcium Magnesium Total Bilirubin AST ALT Alkaline Phosphatase Total Protein Albumin Urine Color Urine Clarity Urine pH Ur Specific [place] Urine Protein Urine Glucose (UA) Urine Ketones Urine Occult Blood Urine Nitrate Urine Bilirubin Urine Ictotest Urine Urobilinogen Ur Leukocyte Esterase Urine RBC Urine WBC Ur Squamous Epith Cells Hyaline Casts Urine Mucus Micro UA Comment Urine Culture Comments - Imaging Impressions Chest X-Ray 06/07/18 10:46 CONCLUSION: Mildly prominent cardiomediastinal contour. No focal infiltrate or effusion. Foot X-Ray 06/07/18 10:46 CONCLUSION: Soft tissue ulceration on plantar aspect of foot. Amputation of the third and fifth toes as above. No acute bony abnormality. Remote proximal fifth metatarsal fracture. Caprini VTE Risk Assessment Caprini Risk Assessment Model: Point Value = 1 Point Value = 2 Point Value = 3 Point Value = 5 Age 41-60 Minor surgery BMI > 25 kg/m2 Swollen legs Varicose veins or History of unexplained or recurrent spontaneous Oral contraceptives or hormone replacement Sepsis (< 1 month) Serious lung disease, including pneumonia (< 1 month) Abnormal pulmonary function Acute myocardial infarction Congestive heart failure (< 1 month) History of inflammatory bowel disease Medical patient at bed rest Age 61-74 Arthroscopic surgery Major open surgery (> 45 min) Laparoscopic surgery (> 45 min) Malignancy Confined to bed (> 72 hours) Immobilizing plaster cast Central venous access Age >= 75 History of VTE Family history of VTE Factor V Leiden Prothrombin [id number] Lupus anticoagulant Anticardiolipin antibodies Elevated serum homocysteine Heparin-induced thrombocytopenia Other congenital or acquired thrombophilia Stroke (< 1 month) Elective arthroplasty Hip, pelvis, or leg fracture Acute spinal cord injury (< 1 month) Prophylaxis Regimen: Total Risk Factor Score Risk Level Prophylaxis Regimen 0-1 Low Early ambulation 2 Moderate Order ONE of the following: *Sequential Compression Device (SCD) *Heparin 5000 units SQ BID 3-4 Higher Order ONE of the following medications: *Heparin 5000 units SQ TID *Enoxaparin/Lovenox 40 mg SQ daily (WT < 150 kg, CrCl > 30 mL/min) *Enoxaparin/Lovenox 30 mg SQ daily (WT < 150 kg, CrCl > 10-29 mL/min) *Enoxaparin/Lovenox 30 mg SQ BID (WT < 150 kg, CrCl > 30 mL/min) AND/OR *Sequential Compression Device (SCD) 5 or more Highest Order ONE of the following medications: *Heparin 5000 units SQ TID (Preferred with Epidurals) *Enoxaparin/Lovenox 40 mg SQ daily (WT < 150 kg, CrCl > 30 mL/min) *Enoxaparin/Lovenox 30 mg SQ daily (WT < 150 kg, CrCl > 10-29 mL/min) *Enoxaparin/Lovenox 30 mg SQ BID (WT < 150 kg, CrCl > 30 mL/min) AND *Sequential Compression Device (SCD) Assessment and Plan - Assessment (1) Diabetic foot infection Code(s): E11.628 - Type 2 diabetes mellitus with other skin complications; L08.9 - Local infection of the skin and subcutaneous tissue, unspecified Status: Acute (2) Acute kidney injury Code(s): N17.9 - Acute kidney failure, unspecified Status: Acute
[2018-06-07 15:03] LABS: Clarity,Urine Cloudy (Clear); Color,Urine Amber (Yellw/Straw); Glucose,Urine (UA) 500 or Greater mg/dL (Negative); Hyaline Casts,Urine 16 /lpf (0-3); Leukocyte Esterase,Urine Negative (Negative); Mucus,Urine Few /lpf (Occasional); Nitrite,Urine Negative (Negative); Specific Gravity,Urine 1.023 (1.002-1.035); Squamous Epithelial Cell,Urine 1 /hpf (0-5); Urobilinogen,Urine 4 or Greater mg/dL (Less than 2)
[2018-06-07 15:11] LABS: Bilirubin,Urine Negative (Negative)
[2018-06-07 15:12] LABS: Ictotest,Urine Negative (Negative)
[2018-06-07] MEDS: Sod Chloride 0.9% Inj 1,000 ML IV.CONT SCH (17:42)
[2018-06-07 17:55] LABS: Hemoglobin A1c 10.1 % (4.3-6.0)
[2018-06-07] MEDS: Insulin NovoLOG Aspart Correctional Sugar Inj SQ SCH ×2 (18:32→22:07)
--- NOTE | 2018-06-07 18:49 | P.CONPOD ---
History of Present Illness Service: Podiatry Consult date: 06/07/18 Reason for Consult: Right foot chronic wound Primary Care Provider: Gabriel Ariza Chief Complaint: foot wound History of Present Illness: Patient has not been in to see me in clinic in a long time. He states that he left for the summer and just got back. He states he has had some nausea/fever for about 3 days, but thinks it is something he ate. He says the foot wound has started getting worse and is dry and painful. He says it just won't heal and he is worried about it. Review of Systems All other systems reviewed negative except as stated in HPI PMFSH - History History Provided By: Patient - Medical History Medical History: Medical History (Last Reviewed 06/07/18 @ 12:02 by Meenakshi Moy DO) Diabetes mellitus HTN (hypertension) Hyperlipemia Neuropathy - Surgical History Surgical History: Surgical History (Last Reviewed 06/07/18 @ 12:02 by Meenakshi Moy DO) H/O hernia repair Status post right foot surgery - Tobacco History Second Hand Smoke Exposure: Yes Tobacco Use In Past 30 Days: Yes Smoking Status: Current every day smoker Tobacco Type: Cigarettes - Alcohol History How Often Do You Have a Drink Containing Alcohol: Never - Substance Use History Substance History: No History of Abuse - Travel History Recent Travel in the [place] Within the Last 8 Weeks: No Recent Travel Out of the Country Within the Last 8 Weeks: No - Immunization History Tetanus Immunization: <5 Years Hx Influenza Vaccine This Season: Yes Medications and Allergies Active Medications: Active Medications Acetaminophen (Tylenol) 650 mg PO Q4H PRN PRN Reason: Temp > 100.4 Al Hydroxide/Mg Hydroxide (Milk Of Francisco Javier Carroll) 30 ml PO Q12H PRN PRN Reason: Mild Constipation Atorvastatin Calcium (Lipitor) 80 mg PO DAILY [facility] Carvedilol (Coreg) 12.5 mg PO BID [facility] Cilostazol (Pletal) 50 mg PO BID [facility] Dextrose (D50w Vial) 50 ml IV.PUSH UNSCH PRN PRN Reason: PER HYPOGLYCEMIA PROTOCOL Glucagon (Glucagon Inj) 1 mg OTHER PRN PRN PRN Reason: for Hypoglycemia Protocol Sodium Chloride (Ns Inj) 1,000 mls @ 75 mls/hr IV.CONT .[id number] [facility] Last Admin: 06/07/18 17:42 Dose: 75 mls/hr Insulin Aspart (Novolog Insulin Correctional Sugar Inj) 0 unit SQ ACHS [facility]; Protocol Last Admin: 06/07/18 18:32 Dose: 10 unit Insulin Detemir (Levemir Inj) 10 unit SQ BID [facility] Nicotine (Habitrol 14 Mg Patch.24 Hr) 1 patch T-DERMAL DAILY [facility] Last Admin: 06/07/18 17:42 Dose: 1 patch Nifedipine (Procardia Xl) 60 mg PO DAILY [facility] Ondansetron HCl (Zofran Inj) 4 mg IV.PUSH Q6H PRN PRN Reason: NAUSEA OR VOMITING Last Admin: 06/07/18 16:11 Dose: 4 mg Pantoprazole Sodium (Protonix) 40 mg PO DAILY [facility] Patch Removal (Remove Old Patch) 0 each T-DERMAL DAILY [facility] Prednisone (Deltasone) 5 mg PO AC DINNER [facility] Prednisone (Deltasone) 10 mg PO DAILY [facility] Pregabalin (Lyrica) 50 mg PO BID [facility] Rivaroxaban (Xarelto) 20 mg PO DAILY [facility] Senna/Docusate Sodium (Mona-Colace) 1 tab PO BID [facility] Tramadol HCl (Ultram) 50 mg PO TID [facility] Allergies Allergy/AdvReac Type Severity Reaction Status Date / Time penicillin G Allergy Severe Hives Verified 06/07/18 11:12 Home Medications Medication Instructions Recorded Confirmed Type carvedilol 12.5 mg PO BID 06/07/18 06/07/18 History cilostazol PO BID 06/07/18 History metformin 1,000 mg PO BID 06/07/18 06/07/18 History nifedipine 60 mg PO DAILY 06/07/18 06/07/18 History pantoprazole [Protonix] 40 mg PO DAILY 06/07/18 06/07/18 History prednisone 5 mg PO AC DINNER 06/07/18 06/07/18 History prednisone 10 mg PO DAILY 06/07/18 06/07/18 History pregabalin [Lyrica] 50 mg PO BID 06/07/18 06/07/18 History rivaroxaban [Xarelto] 20 mg PO DAILY 06/07/18 06/07/18 History rosuvastatin 40 mg PO DAILY 06/07/18 06/07/18 History tramadol 50 mg PO TID 06/07/18 06/07/18 History Physical Exam Vital signs: Vital Signs 08/07/18 08:23 06/07/18 08:51 06/07/18 11:59 Temperature 97.9 F Pulse Rate 121 H 116 H 120 H Respiratory Rate 20 24 Blood Pressure 141/72 H Pulse Oximetry 97 98 97 06/07/18 12:00 06/07/18 12:40 06/07/18 15:25 Temperature 98.5 F Pulse Rate 110 H 113 H Respiratory Rate 16 20 Blood Pressure 118/67 143/74 H Pulse Oximetry 97 95 94 L 06/07/18 16:00 Temperature 98.6 F Pulse Rate 110 H Respiratory Rate 20 Blood Pressure 129/70 Pulse Oximetry 94 L Intake & Output 06/06/18 06/07/18 06/07/18 18:59 06:59 18:59 Weight 99.79 kg Other: Date of Last Bowel Movement 06/07/18 Narrative: Right lateral foot nears 5th met base/cuboid has ulceration dry, necrotic, approximately 2.5cm x 3cm x 1cm depth with cool skin temperature and nonpalpable pedal pulses. He has history of digital amputations to same foot in years past. Sensation intact and pain to palpation to lateral foot near wound area. Results - Labs CBC & Chem 7: 06/07/18 11:00 06/07/18 11:00 Laboratory Results - last 24 hr 06/07/18 06/07/18 06/07/18 11:00 11:00 11:00 WBC 8.5 RBC 6.91 H Hgb 13.3 Hct 41.1 MCV 59.5 L MCH 19.2 L MCHC 32.3 RDW 18.8 H Plt Count 256 MPV 8.5 Prelim Diff (Auto) Manual diff required WBC Differential Manual diff final Seg Neuts % (Manual) 23 Band Neuts % (Manual) 31 H Lymphocytes % (Manual) 13 Monocytes % (Manual) 17 H Eosinophils % (Manual) 3 Metamyelocytes % (Man) 10 H Myelocytes % (Man) 1 H Promyelocytes % (Man) 2 H Abs Neuts (Manual) 5.7 Nucleated RBCs/100 WBC 1 H Differential Comment . Toxic Granulation 2+ H Toxic Vacuolation Present H Dohle Bodies Present H Platelet Estimate Normal Platelet Morphology Clumped H ESR PT 12.1 H INR 1.2 Sodium 129 L Potassium 4.2 Chloride 93 L Carbon Dioxide 24.9 Anion Gap 11 BUN 45 H Creatinine 1.89 H Estimated GFR 37 L POC Glucose Random Glucose 331 H Lactic Acid Calcium 8.5 Magnesium 1.4 L Total Bilirubin 1.2 H AST 14 L ALT 20 Alkaline Phosphatase 70 Total Protein 7.5 Albumin 3.4 Urine Color Urine Clarity Urine pH Ur Specific Bud Urine Protein Urine Glucose (UA) Urine Ketones Urine Occult Blood Urine Nitrate Urine Bilirubin Urine Ictotest Urine Urobilinogen Ur Leukocyte Esterase Urine RBC Urine WBC Ur Squamous Epith Cells Hyaline Casts Urine Mucus Micro UA Comment Urine Culture Comments 06/07/18 06/07/18 06/07/18 11:00 13:51 14:20 WBC RBC Hgb Hct MCV MCH MCHC RDW Plt Count MPV Prelim Diff (Auto) WBC Differential Seg Neuts % (Manual) Band Neuts % (Manual) Lymphocytes % (Manual) Monocytes % (Manual) Eosinophils % (Manual) Metamyelocytes % (Man) Myelocytes % (Man) Promyelocytes % (Man) Abs Neuts (Manual) Nucleated RBCs/100 WBC Differential Comment Toxic Granulation Toxic Vacuolation Dohle Bodies Platelet Estimate Platelet Morphology ESR PT INR Sodium Potassium Chloride Carbon Dioxide Anion Gap BUN Creatinine Estimated GFR POC Glucose 340 H Random Glucose Lactic Acid 1.8 Calcium Magnesium Total Bilirubin AST ALT Alkaline Phosphatase Total Protein Albumin Urine Color Idania Urine Clarity Cloudy H Urine pH 5.0 Ur Specific Bud 1.023 Urine Protein 100 H Urine Glucose (UA) 500 or greater Urine Ketones Negative Urine Occult Blood Negative Urine Nitrate Negative Urine Bilirubin Negative Urine Ictotest Negative Urine Urobilinogen 4 or greater Ur Leukocyte Esterase Negative Urine RBC 1 Urine WBC 1 Ur Squamous Epith Cells 1 Hyaline Casts 16 Urine Mucus Few H Micro UA Comment Culture not ind Urine Culture Comments Culture not ind 06/07/18 06/07/18 15:35 17:45 WBC RBC Hgb Hct MCV MCH MCHC RDW Plt Count MPV Prelim Diff (Auto) WBC Differential Seg Neuts % (Manual) Band Neuts % (Manual) Lymphocytes % (Manual) Monocytes % (Manual) Eosinophils % (Manual) Metamyelocytes % (Man) Myelocytes % (Man) Promyelocytes % (Man) Abs Neuts (Manual) Nucleated RBCs/100 WBC Differential Comment Toxic Granulation Toxic Vacuolation Dohle Bodies Platelet Estimate Platelet Morphology ESR 24 H PT INR Sodium Potassium Chloride Carbon Dioxide Anion Gap BUN Creatinine Estimated GFR POC Glucose 332 H Random Glucose Lactic Acid Calcium Magnesium Total Bilirubin AST ALT Alkaline Phosphatase Total Protein Albumin Urine Color Urine Clarity Urine pH Ur Specific Bud Urine Protein Urine Glucose (UA) Urine Ketones Urine Occult Blood Urine Nitrate Urine Bilirubin Urine Ictotest Urine Urobilinogen Ur Leukocyte Esterase Urine RBC Urine WBC Ur Squamous Epith Cells Hyaline Casts Urine Mucus Micro UA Comment Urine Culture Comments - Imaging Impressions Chest X-Ray 06/07/18 10:46 CONCLUSION: Mildly prominent cardiomediastinal contour. No focal infiltrate or effusion. Foot X-Ray 06/07/18 10:46 CONCLUSION: Soft tissue ulceration on plantar aspect of foot. Amputation of the third and fifth toes as above. No acute bony abnormality. Remote proximal fifth metatarsal fracture. Awaiting MRI results for Right foot, pending Assessment and Plan - Assessment (1) Ulcer of right foot Code(s): L97.519 - Non-pressure chronic ulcer of other part of right foot with unspecified severity Status: Chronic Plan: Will await vascular evaluation/treatment prior to initiating any treatment to the foot. MRI results pending. Will give patient options based on vascular evaluation plus MRI results, to include but not limited to the following: debridement/amputation/bone biopsy/ long-term IV antibiotics (2) Osteomyelitis of right foot Code(s): M86.9 - Osteomyelitis, unspecified Status: Chronic Plan: Probable. Await MRI results to determine further treatment. (3) Diabetic foot infection Code(s): E11.628 - Type 2 diabetes mellitus with other skin complications; L08.9 - Local infection of the skin and subcutaneous tissue, unspecified Status: Acute (1) Ulcer of right foot Qualifiers: Non-pressure ulcer stage: with necrosis of muscle Qualified Code(s): L97.513 - Non-pressure chronic ulcer of other part of right foot with necrosis of muscle
[2018-06-07] MEDS: Cilostazol 50 MG Tablet PO SCH (21:57)
[2018-06-07] MEDS: Carvedilol 6.25 MG Tablet PO SCH (21:57)
[2018-06-07] MEDS: Pregabalin 25 MG Capsule PO SCH (21:57)
[2018-06-07] MEDS: Senna/Docusate Sodium 8.6/50 MG Tablet PO SCH (21:57)
[2018-06-07] MEDS: Insulin Detemir Inj 1,000 UNIT/10 ML Vial SQ SCH (22:07)
--- NOTE | 2018-06-07 22:25 | MR ---
EXAM DATE: 06/07/2018 5:18 PM EDT AGE/SEX: 58 years / Male INDICATIONS: Osteomyelitis. Right lateral foot wound. CLINICAL DATA: This is the patient's subsequent encounter. Patient reports that signs and symptoms h ave been present for 1 month and indicates a pain score of 3/10. MEDICAL/SURGICAL HISTORY: Hypertension. Diabetes. Renal failure, acute. Umbilical hernia repa ir. Right toes amputated. COMPARISON: [facility] [place]OT COMPLETE RIGHT 3V, 06/07/2018. . TECHNIQUE: Multiplanar, multisequence MRI examination was performed without contrast. FINDINGS: Patient has had the little toe amputated back to the mid metatarsal. There is edema of the soft tissu es around the first through fourth metatarsals and also the fifth metatarsal remnant without anything clearly drainable. No perceptible bone destruction or signal abnormalities of osteomyelitis demonstr ated. CONCLUSION: Nonspecific soft tissue edema and swelling. No drainable abscess. No perceptible osteomye litis. Electronically signed by: Timbo Hazel MD 06/07/2018 10:24 PM EDT
[2018-06-08 08:06] LABS: Baso % (Auto) 0.2 % (0.0-2.0); Eos % (Auto) 0.4 % (0.0-4.0); Hematocrit 38.9 % (39.0-51.0); Hemoglobin 12.4 gm/dL (13.0-17.0); Lymph # (Auto) 0.7 th/mm3 (1.0-4.8); Lymph % (Auto) 12.6 % (9.0-44.0); Mean Corpuscular HGB Conc 31.8 % (32.0-36.0); Mean Corpuscular Hemoglobin 19.1 pg (27.0-34.0); Mean Corpuscular Volume 60.1 fL (80.0-100.0); Mean Platelet Volume 8.4 fL (7.0-11.0); Mono # (Auto) 0.7 th/mm3 (0.0-0.9); Mono % (Auto) 12.1 % (0.0-8.0); Neut # (Auto) 4.3 th/mm3 (1.8-7.7); Neut % (Auto) 74.7 % (16.0-70.0); Platelet Count 253 th/mm3 (150-450); Red Blood Count 6.48 mil/mm3 (4.50-5.90); Red Cell Distribution Width 18.5 % (11.6-17.2); White Blood Count 5.7 th/mm3 (4.0-11.0)
[2018-06-08 08:15] LABS: Carbon Dioxide 25.5 meq/L (21.0-32.0); Magnesium 1.6 mg/dL (1.5-2.5); Potassium 4.3 meq/L (3.5-5.1)
[2018-06-08 08:42] LABS: Lymphocytes 29 % (9-44); Monocytes 8 % (0-8)
[2018-06-08 08:43] LABS: Burr Cells 1+; Platelet Estimate Normal (Normal)
[2018-06-08 08:44] LABS: Toxic Granulation 1+
[2018-06-08] MEDS ORDERED: Rivaroxaban 20 MG Tablet PO SCH (09:00)
[2018-06-08] MEDS ORDERED: Non-Formulary Drug (Rosuvastatin [Rosuvastatin] 40 MG) PO SCH (09:00)
[2018-06-08] MEDS ORDERED: predniSONE 10 MG Tablet PO SCH (09:00)
--- NOTE | 2018-06-08 10:03 | P.PNIM ---
Subjective Interval history: Pt reports that he does not want to stay any later than 5PM today and will leave AMA if his care is not concluded by that time He reports that he feels claustrophobic and wants to leave Denies any increased pain, chest pain, SOB or palpitations Pt is tolerating oral intake Physical Exam Vital signs: Vital Signs 06/07/18 11:59 06/07/18 12:00 06/07/18 12:40 Temperature Pulse Rate 120 H 110 H Respiratory Rate 24 16 Blood Pressure 118/67 Pulse Oximetry 97 97 95 06/07/18 15:25 06/07/18 16:00 06/07/18 20:00 Temperature 98.5 F 98.6 F 98.8 F Pulse Rate 113 H 110 H 113 H Respiratory Rate 20 20 19 Blood Pressure 143/74 H 129/70 133/70 Pulse Oximetry 94 L 94 L 92 L 06/08/18 00:00 06/08/18 04:00 06/08/18 07:39 Temperature 98.1 F 98.4 F 96.2 F L Pulse Rate 111 H 99 H 104 H Respiratory Rate 19 19 18 Blood Pressure 166/78 H 151/75 H 134/73 Pulse Oximetry 93 L 94 L 95 Intake & Output 06/07/18 06/08/18 06/08/18 18:59 06:59 18:59 Intake Total 2300 / 2300 Balance 2300 / 2300 Weight 99.79 kg Intake: IV 2300 / 2300 Magnesium Sulfate Inj 2 GM In 100 / 100 NS Inj 96 ML @ 50 mls/hr IV.SIG ONCE ONE Rx#:[id number] NS Inj 1,000 ML @ Wide Open IV. 1999 SIG BOLUS ONE Rx#:[id number] Other: Date of Last Bowel Movement 06/07/18 06/07/18 Narrative: GENERAL: This is a well-nourished, well-developed patient, in no apparent distress. CARDIO: Regular RESP: CTA bilaterally. ABD: +BS, soft, non-tender, nondistended. EXT: nonhealing deep ulceration with what appears to be necrotic tissue present to posterior lateral aspect of the right foot with edema present. No drainage present Results - Labs CBC & Chem 7: 06/08/18 06:36 06/08/18 06:36 Laboratory Results - last 24 hr 06/07/18 06/07/18 06/07/18 11:00 11:00 11:00 WBC 8.5 RBC 6.91 H Hgb 13.3 Hct 41.1 MCV 59.5 L MCH 19.2 L MCHC 32.3 RDW 18.8 H Plt Count 256 MPV 8.5 Prelim Diff (Auto) Manual diff required Neut % (Auto) Lymph % (Auto) Petroleum % (Auto) Eos % (Auto) Baso % (Auto) Neut # (Auto) Lymph # (Auto) Petroleum # (Auto) Eos # (Auto) Baso # (Auto) WBC Differential Manual diff final Seg Neuts % (Manual) 23 Band Neuts % (Manual) 31 H Lymphocytes % (Manual) 13 Monocytes % (Manual) 17 H Eosinophils % (Manual) 3 Metamyelocytes % (Man) 10 H Myelocytes % (Man) 1 H Promyelocytes % (Man) 2 H Abs Neuts (Manual) 5.7 Nucleated RBCs/100 WBC 1 H Differential Comment . Toxic Granulation 2+ H Toxic Vacuolation Present H Dohle Bodies Present H Platelet Estimate Normal Platelet Morphology Clumped H Laurence Cells ESR PT 12.1 H INR 1.2 Sodium 129 L Potassium 4.2 Chloride 93 L Carbon Dioxide 24.9 Anion Gap 11 BUN 45 H Creatinine 1.89 H Estimated GFR 37 L POC Glucose Random Glucose 331 H Hemoglobin A1c Lactic Acid Calcium 8.5 Magnesium 1.4 L Total Bilirubin 1.2 H AST 14 L ALT 20 Alkaline Phosphatase 70 Total Protein 7.5 Albumin 3.4 Urine Color Urine Clarity Urine pH Ur Specific [place] Urine Protein Urine Glucose (UA) Urine Ketones Urine Occult Blood Urine Nitrate Urine Bilirubin Urine Ictotest Urine Urobilinogen Ur Leukocyte Esterase Urine RBC Urine WBC Ur Squamous Epith Cells Hyaline Casts Urine Mucus Micro UA Comment Urine Culture Comments 06/07/18 06/07/18 06/07/18 11:00 11:00 13:51 WBC RBC Hgb Hct MCV MCH MCHC RDW Plt Count MPV Prelim Diff (Auto) Neut % (Auto) Lymph % (Auto) Petroleum % (Auto) Eos % (Auto) Baso % (Auto) Neut # (Auto) Lymph # (Auto) Petroleum # (Auto) Eos # (Auto) Baso # (Auto) WBC Differential Seg Neuts % (Manual) Band Neuts % (Manual) Lymphocytes % (Manual) Monocytes % (Manual) Eosinophils % (Manual) Metamyelocytes % (Man) Myelocytes % (Man) Promyelocytes % (Man) Abs Neuts (Manual) Nucleated RBCs/100 WBC Differential Comment Toxic Granulation Toxic Vacuolation Dohle Bodies Platelet Estimate Platelet Morphology Laurence Cells ESR PT INR Sodium Potassium Chloride Carbon Dioxide Anion Gap BUN Creatinine Estimated GFR POC Glucose 340 H Random Glucose Hemoglobin A1c 10.1 H Lactic Acid 1.8 Calcium Magnesium Total Bilirubin AST ALT Alkaline Phosphatase Total Protein Albumin Urine Color Urine Clarity Urine pH Ur Specific [place] Urine Protein Urine Glucose (UA) Urine Ketones Urine Occult Blood Urine Nitrate Urine Bilirubin Urine Ictotest Urine Urobilinogen Ur Leukocyte Esterase Urine RBC Urine WBC Ur Squamous Epith Cells Hyaline Casts Urine Mucus Micro UA Comment Urine Culture Comments 06/07/18 06/07/18 06/07/18 14:20 15:35 17:45 WBC RBC Hgb Hct MCV MCH MCHC RDW Plt Count MPV Prelim Diff (Auto) Neut % (Auto) Lymph % (Auto) Petroleum % (Auto) Eos % (Auto) Baso % (Auto) Neut # (Auto) Lymph # (Auto) Petroleum # (Auto) Eos # (Auto) Baso # (Auto) WBC Differential Seg Neuts % (Manual) Band Neuts % (Manual) Lymphocytes % (Manual) Monocytes % (Manual) Eosinophils % (Manual) Metamyelocytes % (Man) Myelocytes % (Man) Promyelocytes % (Man) Abs Neuts (Manual) Nucleated RBCs/100 WBC Differential Comment Toxic Granulation Toxic Vacuolation Dohle Bodies Platelet Estimate Platelet Morphology Laurence Cells ESR 24 H PT INR Sodium Potassium Chloride Carbon Dioxide Anion Gap BUN Creatinine Estimated GFR POC Glucose 332 H Random Glucose Hemoglobin A1c Lactic Acid Calcium Magnesium Total Bilirubin AST ALT Alkaline Phosphatase Total Protein Albumin Urine Color Idania Urine Clarity Cloudy H Urine pH 5.0 Ur Specific [place] 1.023 Urine Protein 100 H Urine Glucose (UA) 500 or greater Urine Ketones Negative Urine Occult Blood Negative Urine Nitrate Negative Urine Bilirubin Negative Urine Ictotest Negative Urine Urobilinogen 4 or greater Ur Leukocyte Esterase Negative Urine RBC 1 Urine WBC 1 Ur Squamous Epith Cells 1 Hyaline Casts 16 Urine Mucus Few H Micro UA Comment Culture not ind Urine Culture Comments Culture not ind 06/07/18 06/08/18 06/08/18 21:58 06:36 06:36 WBC 5.7 RBC 6.48 H Hgb 12.4 L Hct 38.9 L MCV 60.1 L MCH 19.1 L MCHC 31.8 L RDW 18.5 H Plt Count 253 MPV 8.4 Prelim Diff (Auto) Slide review pending Neut % (Auto) 74.7 H Lymph % (Auto) 12.6 Petroleum % (Auto) 12.1 H Eos % (Auto) 0.4 Baso % (Auto) 0.2 Neut # (Auto) 4.3 Lymph # (Auto) 0.7 L Petroleum # (Auto) 0.7 Eos # (Auto) 0.0 Baso # (Auto) 0.0 WBC Differential Manual diff final Seg Neuts % (Manual) 40 Band Neuts % (Manual) 23 H Lymphocytes % (Manual) 29 Monocytes % (Manual) 8 Eosinophils % (Manual) Metamyelocytes % (Man) Myelocytes % (Man) Promyelocytes % (Man) Abs Neuts (Manual) 3.6 Nucleated RBCs/100 WBC Differential Comment . Toxic Granulation 1+ H Toxic Vacuolation Dohle Bodies Platelet Estimate Normal Platelet Morphology Enlarged H Laurence Cells 1+ H ESR PT INR Sodium 130 L Potassium 4.3 Chloride 96 L Carbon Dioxide 25.5 Anion Gap 9 BUN 52 H Creatinine 1.45 H Estimated GFR 50 L POC Glucose 250 H Random Glucose 250 H Hemoglobin A1c Lactic Acid Calcium 8.0 L Magnesium 1.6 Total Bilirubin AST ALT Alkaline Phosphatase Total Protein Albumin Urine Color Urine Clarity Urine pH Ur Specific [place] Urine Protein Urine Glucose (UA) Urine Ketones Urine Occult Blood Urine Nitrate Urine Bilirubin Urine Ictotest Urine Urobilinogen Ur Leukocyte Esterase Urine RBC Urine WBC Ur Squamous Epith Cells Hyaline Casts Urine Mucus Micro UA Comment Urine Culture Comments 06/08/18 08:43 WBC RBC Hgb Hct MCV MCH MCHC RDW Plt Count MPV Prelim Diff (Auto) Neut % (Auto) Lymph % (Auto) Petroleum % (Auto) Eos % (Auto) Baso % (Auto) Neut # (Auto) Lymph # (Auto) Petroleum # (Auto) Eos # (Auto) Baso # (Auto) WBC Differential Seg Neuts % (Manual) Band Neuts % (Manual) Lymphocytes % (Manual) Monocytes % (Manual) Eosinophils % (Manual) Metamyelocytes % (Man) Myelocytes % (Man) Promyelocytes % (Man) Abs Neuts (Manual) Nucleated RBCs/100 WBC Differential Comment Toxic Granulation Toxic Vacuolation Dohle Bodies Platelet Estimate Platelet Morphology Laurence Cells ESR PT INR Sodium Potassium Chloride Carbon Dioxide Anion Gap BUN Creatinine Estimated GFR POC Glucose 295 H Random Glucose Hemoglobin A1c Lactic Acid Calcium Magnesium Total Bilirubin AST ALT Alkaline Phosphatase Total Protein Albumin Urine Color Urine Clarity Urine pH Ur Specific [place] Urine Protein Urine Glucose (UA) Urine Ketones Urine Occult Blood Urine Nitrate Urine Bilirubin Urine Ictotest Urine Urobilinogen Ur Leukocyte Esterase Urine RBC Urine WBC Ur Squamous Epith Cells Hyaline Casts Urine Mucus Micro UA Comment Urine Culture Comments - Imaging Impressions Foot MRI 06/07/18 00:00 CONCLUSION: Nonspecific soft tissue edema and swelling. No drainable abscess. No perceptible osteomyelitis. Chest X-Ray 06/07/18 10:46 CONCLUSION: Mildly prominent cardiomediastinal contour. No focal infiltrate or effusion. Foot X-Ray 06/07/18 10:46 CONCLUSION: Soft tissue ulceration on plantar aspect of foot. Amputation of the third and fifth toes as above. No acute bony abnormality. Remote proximal fifth metatarsal fracture. Assessment and Plan - Assessment (1) Diabetic foot infection Code(s): E11.628 - Type 2 diabetes mellitus with other skin complications; L08.9 - Local infection of the skin and subcutaneous tissue, unspecified Status: Acute Plan: This is a 58-year-old male patient with past medical history which includes hypertension, morbid obesity, diabetes mellitus with diabetic neuropathy, rheumatoid arthritis on methotrexate and daily steroid use, hyperlipidemia, GERD , lumbar degenerative disc disease with radiculopathy and spondylosis, major depression, obstructive sleep apnea, PAD, and history of osteomyelitis of the right foot with third and fifth toe amputation [address] Khoury. Patient presenting with right foot infection. The patient states that he's had a "sore" on the right lateral part of his foot for the past 3 months; he saw a inside sales specialist several months ago but does not remember whom. He reports tactile fevers/ chills, fatigue, and pain to the right foot. He has a history of diabetes but has not checked his FSBG for the past several days. Diabetic foot wound, concerning for osteomyelitis - Patient has a history of osteomyelitis of the right foot with third and fifth toe amputation [address] Khoury[address] - X-ray of foot (06/07/18) --> Soft tissue ulceration on plantar aspect of foot. Amputation of the third and fifth toes as above. No acute bony abnormality. Remote proximal fifth metatarsal fracture. - MRI foot (06/07/18) --> Nonspecific soft tissue edema and swelling. No drainable abscess. No perceptible osteomyelitis. - Podiatry following - Vascular surgery is consulted - Patient was given vancomycin in the emergency department -Pt very anxious for discharge today and reports that if his care is not concluded by 5PM today hei s leaving AMA. I explained to him that in order for Dr Brito to make further decisions regarding his care/treatment she wanted him evaluated by Vascular Surgery and if he was unable to see them here then it will further delay his care and treatment. He was agreeable to staying to see the Vascular Surgeon today. - Ativan 1mg po Q6H PRN added. Pt denies any regular alcohol intake. Acute kidney injury - Patient's baseline creatinine around 0.78 with estimated GFR 90-100 - In the ED his Cr was 1.89 - Patient received 2 L IVF in ER - continue NS IVF - Repeat BMP on 06/08 with Cr 1.45 - Monitor labs Hypertension - Continue patient's home nifedipine - Monitor BP Diabetes mellitus with diabetic neuropathy, - Diabetic diet accu checks ACHS PAD - S/P stents placed to the RLE [address] Melara - Continue patient's home Xarelto 20 mg daily Rheumatoid arthritis on methotrexate and daily steroid use, - Continue patient home steroids Hyperlipidemia - Continue patient's home statin GERD, - Continue patient's home Protonix DVT prophylaxis with SCDs, patient also on Xarelto The exam, history, and the medical decision-making described in the above note were completed with the assistance of the mid-level provider. I reviewed and agree with the findings presented. I attest that I had a [id number] encounter with the patient on the same day, and personally performed and documented my assessment and findings in the medical record. await vascular w/up of right leg with dr Galindo. Podiatry willl need to debride the wound. no osteo per MRI and no abscess. pt angry and was threatening to leave. He will stay if we are able to get him a room upstairs with a window. poor control dm. pt friends say he is very noncompliant. (2) Acute kidney injury Code(s): N17.9 - Acute kidney failure, unspecified Status: Acute
[2018-06-08] MEDS ORDERED: LORazepam 1 MG Tablet PO PRN (10:17)
[2018-06-08] MEDS: Insulin NovoLOG Aspart Correctional Sugar Inj SQ SCH ×4 (10:29→21:52)
[2018-06-08] MEDS: Insulin Detemir Inj 1,000 UNIT/10 ML Vial SQ SCH (10:30)
[2018-06-08] MEDS: Pregabalin 25 MG Capsule PO SCH ×2 (10:32→21:51)
[2018-06-08] MEDS: Senna/Docusate Sodium 8.6/50 MG Tablet PO SCH ×2 (10:34→21:51)
[2018-06-08] MEDS: Cilostazol 50 MG Tablet PO SCH ×2 (10:35→21:51)
[2018-06-08] MEDS: Carvedilol 6.25 MG Tablet PO SCH ×2 (10:36→21:51)
--- NOTE | 2018-06-08 12:28 | P.CONVS ---
History of Present Illness Service: Vascular Surgery Consult date: 06/08/18 Requesting Physician: Anne Khoury Reason for Consult: R foot wound Primary Care Provider: Gabriel Ariza Chief Complaint: foot wound History of Present Illness: 58 yo male with poorly controlled DM (A1c 10) and R lateral foot wound for 3 months, not getting better. + neuropathy but no pain per se. No drainage. Pt denies fevers. Review of Systems Constitutional: Denies chills, Denies fever(s) Cardiovascular: Reports leg swelling, Reports shortness of breath with activity Respiratory: Reports shortness of breath Musculoskeletal: Reports abnormal walking, Reports joint pain Skin/Breast: Reports sores PMFSH - History History Provided By: Patient - Medical History Medical History: Medical History (Last Reviewed 06/08/18 @ 12:24 by Aleks Galindo MD) Diabetes mellitus HTN (hypertension) Hyperlipemia Neuropathy - Surgical History Surgical History: Surgical History (Last Reviewed 06/08/18 @ 12:24 by Aleks Galindo MD) H/O hernia repair Status post right foot surgery - Tobacco History Second Hand Smoke Exposure: Yes Tobacco Use In Past 30 Days: Yes Smoking Status: Current every day smoker Tobacco Type: Cigarettes - Alcohol History How Often Do You Have a Drink Containing Alcohol: Never - Substance Use History Substance History: No History of Abuse - Travel History Recent Travel in the [place] Within the Last 8 Weeks: No Recent Travel Out of the Country Within the Last 8 Weeks: No - Immunization History Tetanus Immunization: <5 Years Hx Influenza Vaccine This Season: Yes Medications and Allergies Active Medications: Active Medications Acetaminophen (Tylenol) 650 mg PO Q4H PRN PRN Reason: Temp > 100.4 Al Hydroxide/Mg Hydroxide (Milk Of Francisco Javier Liq) 30 ml PO Q12H PRN PRN Reason: Mild Constipation Atorvastatin Calcium (Lipitor) 80 mg PO DAILY [facility] Last Admin: 06/08/18 10:34 Dose: 80 mg Carvedilol (Coreg) 12.5 mg PO BID [facility] Last Admin: 06/08/18 10:36 Dose: 12.5 mg Cilostazol (Pletal) 50 mg PO BID [facility] Last Admin: 06/08/18 10:35 Dose: 50 mg Dextrose (D50w Vial) 50 ml IV.PUSH UNSCH PRN PRN Reason: PER HYPOGLYCEMIA PROTOCOL Glucagon (Glucagon Inj) 1 mg OTHER PRN PRN PRN Reason: for Hypoglycemia Protocol Sodium Chloride (Ns Inj) 1,000 mls @ 75 mls/hr IV.CONT .[id number] [facility] Last Admin: 06/07/18 17:42 Dose: 75 mls/hr Insulin Aspart (Novolog Insulin Correctional Sugar Inj) 0 unit SQ ACHS [facility]; Protocol Last Admin: 06/08/18 10:29 Dose: 4 unit Insulin Detemir (Levemir Inj) 10 unit SQ BID [facility] Last Admin: 06/08/18 10:30 Dose: 10 unit Lorazepam (Ativan) 1 mg PO Q6H PRN PRN Reason: ANXIETY Nicotine (Habitrol 14 Mg Patch.24 Hr) 1 patch T-DERMAL DAILY [facility] Last Admin: 06/08/18 10:32 Dose: 1 patch Nifedipine (Procardia Xl) 60 mg PO DAILY [facility] Last Admin: 06/08/18 10:35 Dose: 60 mg Ondansetron HCl (Zofran Inj) 4 mg IV.PUSH Q6H PRN PRN Reason: NAUSEA OR VOMITING Last Admin: 06/07/18 16:11 Dose: 4 mg Pantoprazole Sodium (Protonix) 40 mg PO DAILY [facility] Last Admin: 06/08/18 10:35 Dose: 40 mg Patch Removal (Remove Old Patch) 0 each T-DERMAL DAILY [facility] Prednisone (Deltasone) 5 mg PO AC DINNER [facility] Prednisone (Deltasone) 10 mg PO DAILY [facility] Last Admin: 06/08/18 10:32 Dose: 10 mg Pregabalin (Lyrica) 50 mg PO BID [facility] Last Admin: 06/08/18 10:32 Dose: 50 mg Rivaroxaban (Xarelto) 20 mg PO DAILY [facility] Last Admin: 06/08/18 10:39 Dose: 20 mg Senna/Docusate Sodium (Mona-Colace) 1 tab PO BID [facility] Last Admin: 06/08/18 10:34 Dose: 1 tab Tramadol HCl (Ultram) 50 mg PO TID [facility] Last Admin: 06/08/18 10:32 Dose: 50 mg Allergies Allergy/AdvReac Type Severity Reaction Status Date / Time penicillin G Allergy Severe Hives Verified 06/07/18 11:12 Home Medications Medication Instructions Recorded Confirmed Type carvedilol 12.5 mg PO BID 06/07/18 06/07/18 History cilostazol PO BID 06/07/18 History metformin 1,000 mg PO BID 06/07/18 06/07/18 History nifedipine 60 mg PO DAILY 06/07/18 06/07/18 History pantoprazole [Protonix] 40 mg PO DAILY 06/07/18 06/07/18 History prednisone 5 mg PO AC DINNER 06/07/18 06/07/18 History prednisone 10 mg PO DAILY 06/07/18 06/07/18 History pregabalin [Lyrica] 50 mg PO BID 06/07/18 06/07/18 History rivaroxaban [Xarelto] 20 mg PO DAILY 06/07/18 06/07/18 History rosuvastatin 40 mg PO DAILY 06/07/18 06/07/18 History tramadol 50 mg PO TID 06/07/18 06/07/18 History Physical Exam Vital Signs / I&O: Vital Signs 06/07/18 12:40 06/07/18 15:25 06/07/18 16:00 Temperature 98.5 F 98.6 F Pulse Rate 113 H 110 H Respiratory Rate 20 20 Blood Pressure 143/74 H 129/70 Pulse Oximetry 95 94 L 94 L 06/07/18 20:00 06/08/18 00:00 06/08/18 04:00 Temperature 98.8 F 98.1 F 98.4 F Pulse Rate 113 H 111 H 99 H Respiratory Rate 19 19 19 Blood Pressure 133/70 166/78 H 151/75 H Pulse Oximetry 92 L 93 L 94 L 06/08/18 07:39 Temperature 96.2 F L Pulse Rate 104 H Respiratory Rate 18 Blood Pressure 134/73 Pulse Oximetry 95 Intake & Output 06/07/18 06/08/18 06/08/18 18:59 06:59 18:59 Intake Total 2300 / 2300 Balance 2300 / 2300 Weight 99.79 kg Intake: IV 2300 / 2300 Magnesium Sulfate Inj 2 GM In 100 / 100 NS Inj 96 ML @ 50 mls/hr IV.SIG ONCE ONE Rx#:[id number] NS Inj 1,000 ML @ Wide Open IV. 1999 SIG BOLUS ONE Rx#:[id number] Other: Date of Last Bowel Movement 06/07/18 06/07/18 Neuro: debilitated male, no acute distress HEENT: anicteric sclera Neck: no JVD Heart: reg rate Lungs: coarse B Abdomen: obese, midline incision well healed; + incisional hernia Vascular: nonpalpable femoral, popliteal, pedal pulses Extremities: R lateral foot wound with minimal healing ,no drainag Laboratory Results - last 24 hr 06/07/18 06/07/18 06/07/18 11:00 13:51 14:20 WBC RBC Hgb Hct MCV MCH MCHC RDW Plt Count MPV Prelim Diff (Auto) Neut % (Auto) Lymph % (Auto) Green % (Auto) Eos % (Auto) Baso % (Auto) Neut # (Auto) Lymph # (Auto) Green # (Auto) Eos # (Auto) Baso # (Auto) WBC Differential Seg Neuts % (Manual) Band Neuts % (Manual) Lymphocytes % (Manual) Monocytes % (Manual) Abs Neuts (Manual) Differential Comment Toxic Granulation Platelet Estimate Platelet Morphology [place] Cells ESR Sodium Potassium Chloride Carbon Dioxide Anion Gap BUN Creatinine Estimated GFR POC Glucose 340 H Random Glucose Hemoglobin A1c 10.1 H Calcium Magnesium Urine Color [place] Urine Clarity Cloudy H Urine pH 5.0 Ur Specific [place] 1.023 Urine Protein 100 H Urine Glucose (UA) 500 or greater Urine Ketones Negative Urine Occult Blood Negative Urine Nitrate Negative Urine Bilirubin Negative Urine Ictotest Negative Urine Urobilinogen 4 or greater Ur Leukocyte Esterase Negative Urine RBC 1 Urine WBC 1 Ur Squamous Epith Cells 1 Hyaline Casts 16 Urine Mucus Few H Micro UA Comment Culture not ind Urine Culture Comments Culture not ind 06/07/18 06/07/18 06/07/18 15:35 17:45 21:58 WBC RBC Hgb Hct MCV MCH MCHC RDW Plt Count MPV Prelim Diff (Auto) Neut % (Auto) Lymph % (Auto) Green % (Auto) Eos % (Auto) Baso % (Auto) Neut # (Auto) Lymph # (Auto) Green # (Auto) Eos # (Auto) Baso # (Auto) WBC Differential Seg Neuts % (Manual) Band Neuts % (Manual) Lymphocytes % (Manual) Monocytes % (Manual) Abs Neuts (Manual) Differential Comment Toxic Granulation Platelet Estimate Platelet Morphology [place] Cells ESR 24 H Sodium Potassium Chloride Carbon Dioxide Anion Gap BUN Creatinine Estimated GFR POC Glucose 332 H 250 H Random Glucose Hemoglobin A1c Calcium Magnesium Urine Color Urine Clarity Urine pH Ur Specific [place] Urine Protein Urine Glucose (UA) Urine Ketones Urine Occult Blood Urine Nitrate Urine Bilirubin Urine Ictotest Urine Urobilinogen Ur Leukocyte Esterase Urine RBC Urine WBC Ur Squamous Epith Cells Hyaline Casts Urine Mucus Micro UA Comment Urine Culture Comments 06/08/18 06/08/18 06/08/18 06:36 06:36 08:43 WBC 5.7 RBC 6.48 H Hgb 12.4 L Hct 38.9 L MCV 60.1 L MCH 19.1 L MCHC 31.8 L RDW 18.5 H Plt Count 253 MPV 8.4 Prelim Diff (Auto) Slide review pending Neut % (Auto) 74.7 H Lymph % (Auto) 12.6 Green % (Auto) 12.1 H Eos % (Auto) 0.4 Baso % (Auto) 0.2 Neut # (Auto) 4.3 Lymph # (Auto) 0.7 L [place] # (Auto) 0.7 Eos # (Auto) 0.0 Baso # (Auto) 0.0 WBC Differential Manual diff final Seg Neuts % (Manual) 40 Band Neuts % (Manual) 23 H Lymphocytes % (Manual) 29 Monocytes % (Manual) 8 Abs Neuts (Manual) 3.6 Differential Comment . Toxic Granulation 1+ H Platelet Estimate Normal Platelet Morphology Enlarged H [place] Cells 1+ H ESR Sodium 130 L Potassium 4.3 Chloride 96 L Carbon Dioxide 25.5 Anion Gap 9 BUN 52 H Creatinine 1.45 H Estimated GFR 50 L POC Glucose 295 H Random Glucose 250 H Hemoglobin A1c Calcium 8.0 L Magnesium 1.6 Urine Color Urine Clarity Urine pH Ur Specific [place] Urine Protein Urine Glucose (UA) Urine Ketones Urine Occult Blood Urine Nitrate Urine Bilirubin Urine Ictotest Urine Urobilinogen Ur Leukocyte Esterase Urine RBC Urine WBC Ur Squamous Epith Cells Hyaline Casts Urine Mucus Micro UA Comment Urine Culture Comments Microbiology 06/07/18 10:55 Aerobic Blood Culture - Preliminary Blood - Peripheral No growth in 1 day Anaerobic Blood Culture - Preliminary No growth in 1 day 06/07/18 11:00 Aerobic Blood Culture - Preliminary Blood - Peripheral No growth in 1 day Anaerobic Blood Culture - Preliminary No growth in 1 day Impressions Foot MRI 06/07/18 00:00 CONCLUSION: Nonspecific soft tissue edema and swelling. No drainable abscess. No perceptible osteomyelitis. Chest X-Ray 06/07/18 10:46 CONCLUSION: Mildly prominent cardiomediastinal contour. No focal infiltrate or effusion. Foot X-Ray 06/07/18 10:46 CONCLUSION: Soft tissue ulceration on plantar aspect of foot. Amputation of the third and fifth toes as above. No acute bony abnormality. Remote proximal fifth metatarsal fracture. Assessment and Plan - Assessment (1) PAD (peripheral artery disease) Code(s): I73.9 - Peripheral vascular disease, unspecified Status: Acute (2) Diabetic foot infection Code(s): E11.628 - Type 2 diabetes mellitus with other skin complications; L08.9 - Local infection of the skin and subcutaneous tissue, unspecified Status: Acute - Plan He very likely has multilevel occlusive disease. He certainly seems to have inadequate blood flow to heal the wound. 1. ABIs - ordered 2. CTA with runoff given lack of appreciable femoral pulse and concern for inflow disease (though may be limited by habitus) 3. Wound care per podiatry From a perfusion standpoint, this can be expeditiously worked up as an outpatient. Pt very anxious to leave. Will follow or arrange f/u this week in my clinic. Aleks Galindo MD FACS [employer]PV[employer] project portfolio analyst [facility] - Heart and Vascular Surgery at [facility] [phone]
--- NOTE | 2018-06-08 15:21 | ECHRPT ---
EXAM DATE: 06/08/2018 2:59 PM EDT AGE/SEX: 58 years / Male INDICATIONS: Diabetic Foot Infection CLINICAL DATA: This is the patient's initial encounter. Patient reports that signs and symptoms have been present for 2 months and indicates a pain score of 7/10. MEDICAL/SURGICAL HISTORY: . Diabetes, Hypertension, Hyperlipidemia, Neuropathy, PAD . H/O Koki ia Repair, Right Foot Surgery COMPARISON: No prior exams available for comparison. TECHNIQUE: Four-cuff ankle and brachial pressures were obtained. Pulse cuff waveform tracings of the ankles were recorded, and ankle-brachial indices were calculated. PRESSURES (mmHg): Brachial (arm) : RIGHT: 117, LEFT: 119 Ankle : RIGHT: 122, LEFT: 152 IVETTE : RIGHT: 1.03, LEFT: 1.28 TBI : RIGHT: 0.00, LEFT: 0.00 FINDINGS: Pulsed-Cuff Waveform: There are good upstroke and a dicrotic downstroke of the tracings. On the left with biphasic waveform on the right. Unable to obtain toe pressures bilaterally. Other: None. CONCLUSION: 1. ABIs within the normal range bilaterally. Electronically signed by: Ran Dumont MD 06/08/2018 3:20 PM EDT
[2018-06-08] MEDS ORDERED: predniSONE 5 MG Tablet PO SCH (16:00)
[2018-06-08] MEDS ORDERED: Sod Chloride 0.9% Inj 1,000 ML IV.CONT SCH (17:45)
[2018-06-08] MEDS: Sod Chloride 0.9% Inj 1,000 ML IV.CONT SCH (19:21)
--- NOTE | 2018-06-08 19:59 | CT ---
EXAM DATE: 06/08/2018 7:42 PM EDT AGE/SEX: 58 years / Male INDICATIONS: Right foot sores pain. CLINICAL DATA: This is the patient's initial encounter. Patient reports that signs and symptoms have been present for 1 day and indicates a pain score of 5/10. MEDICAL/SURGICAL HISTORY: Hypertension. Diabetes. Neuropathy . right leg bypass x2 RADIATION DOSE: 5.91 CTDI (mGy) COMPARISON: [facility], CTA RUNOFF W 3D RECON, 12/02/2015. . TECHNIQUE: Volumetric scanning was performed using a multi-row detector CT scanner during bolus infu christie of 80 ml Omnipaque 350 (iohexol) nonionic water-soluble contrast as a single exam dose. The d rashmi was post processed with a variety of visualization algorithms including full volume maximum inten sity projection, multi-planar sliding thin slab reformation, curved planar reformation, and surface r endering techniques. Using automated exposure control and adjustment of the mA and/or kV according t o patient size, radiation dose was kept as low as reasonably achievable to obtain optimal diagnostic quality images. DICOM format image data is available electronically for review and comparison. FINDINGS: Diffuse atherosclerosis again noted. There is now a graft of the right superficial femoral artery whi ch appears occluded. There is occlusion of the upper portions of the popliteal artery as well but goo d reconstitution and filling of the mid and distal portions of the popliteal artery and into the trif urcation of the leg. No proximal occlusion on the left but there is diffusely poor filling beginning at the trifurcation i n the calf. No acute occlusive diseases seen in the abdomen. Patient has an indurated appearing umbilical hernia containing small bowel and there is a transition point within the hernia sac from distended, fluid-filled small bowel to decompressed small bowel. Thi s is at approximately the distal jejunum or proximal ileum. There is associated gastric distention. No acute solid organ abnormality. Liver is mild fatty infiltrated. No lymphadenopathy, free fluid or free air. Large gallstone again seen, similar to before. No duct stone or ductal dilatation. CONCLUSION: 1. Right superficial femoral artery graft is occluded. Fairly decent reconstitution of more distal v essels beginning at the level of the mid popliteal artery. 2. 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 3. Chronic atherosclerosis without acute occlusive disease proximally. 4. Patient has an acute small bowel obstruction related to an incarcerated appearing umbilical herni a. Electronically signed by: Timbo Hazel MD 06/08/2018 7:58 PM EDT
[2018-06-08 20:12] VITALS: RESP 18
[2018-06-08] MEDS ORDERED: Insulin Detemir Inj 1,000 UNIT/10 ML Vial SQ SCH (21:00)
--- NOTE | 2018-06-08 22:05 | P.PNPOD ---
Physical Exam Vital signs: Vital Signs 06/08/18 00:00 06/08/18 04:00 06/08/18 07:39 Temperature 98.1 F 98.4 F 96.2 F L Pulse Rate 111 H 99 H 104 H Respiratory Rate 19 19 18 Blood Pressure 166/78 H 151/75 H 134/73 Pulse Oximetry 93 L 94 L 95 06/08/18 12:00 06/08/18 16:00 06/08/18 20:00 Temperature 95.7 F L 96.7 F L 98.2 F Pulse Rate 105 H 103 H 99 H Respiratory Rate 16 24 18 Blood Pressure 140/81 138/81 115/69 Pulse Oximetry 95 95 92 L Intake & Output 06/08/18 06/08/18 06/09/18 06:59 18:59 06:59 Intake Total 2300 / 2300 1000 / 1000 Balance 2300 / 2300 1000 / 1000 Intake: IV 2300 / 2300 1000 / 1000 NS Inj 1,000 ML @ 75 mls/hr IV. 1000 / 1000 CONT .[id number] [facility] Rx#:[id number] Magnesium Sulfate Inj 2 GM In 100 / 100 NS Inj 96 ML @ 50 mls/hr IV.SIG ONCE ONE Rx#:[id number] NS Inj 1,000 ML @ Wide Open IV. 1999 SIG BOLUS ONE Rx#:[id number] Other: Date of Last Bowel Movement 06/07/18 Medications and Allergies Active Medications: Active Medications Acetaminophen (Tylenol) 650 mg PO Q4H PRN PRN Reason: Temp > 100.4 Al Hydroxide/Mg Hydroxide (Milk Of Magnesia Liq) 30 ml PO Q12H PRN PRN Reason: Mild Constipation Atorvastatin Calcium (Lipitor) 80 mg PO DAILY [facility] Last Admin: 06/08/18 10:34 Dose: 80 mg Carvedilol (Coreg) 12.5 mg PO BID [facility] Last Admin: 06/08/18 21:51 Dose: 12.5 mg Cilostazol (Pletal) 50 mg PO BID [facility] Last Admin: 06/08/18 21:51 Dose: 50 mg Dextrose (D50w Vial) 50 ml IV.PUSH UNSCH PRN PRN Reason: PER HYPOGLYCEMIA PROTOCOL Glucagon (Glucagon Inj) 1 mg OTHER PRN PRN PRN Reason: for Hypoglycemia Protocol Sodium Chloride (Ns Inj) 1,000 mls @ 84 mls/hr IV.CONT .[id number] [facility] Stop: 06/09/18 05:39 Last Admin: 06/08/18 19:03 Dose: 84 mls/hr Insulin Aspart (Novolog Insulin Correctional Sugar Inj) 0 unit SQ ACHS [facility]; Protocol Last Admin: 06/08/18 21:52 Dose: 2 unit Insulin Detemir (Levemir Inj) 20 unit SQ BID [facility] Last Admin: 06/08/18 21:51 Dose: 20 unit Lorazepam (Ativan) 1 mg PO Q6H PRN PRN Reason: ANXIETY Nicotine (Habitrol 14 Mg Patch.24 Hr) 1 patch T-DERMAL DAILY [facility] Last Admin: 06/08/18 10:32 Dose: 1 patch Nifedipine (Procardia Xl) 60 mg PO DAILY [facility] Last Admin: 06/08/18 10:35 Dose: 60 mg Ondansetron HCl (Zofran Inj) 4 mg IV.PUSH Q6H PRN PRN Reason: NAUSEA OR VOMITING Last Admin: 06/07/18 16:11 Dose: 4 mg Pantoprazole Sodium (Protonix) 40 mg PO DAILY [facility] Last Admin: 06/08/18 10:35 Dose: 40 mg Patch Removal (Remove Old Patch) 0 each T-DERMAL DAILY [facility] Last Admin: 06/08/18 12:26 Dose: Not Given Prednisone (Deltasone) 5 mg PO AC [facility] Last Admin: 06/08/18 19:08 Dose: 5 mg Prednisone (Deltasone) 10 mg PO DAILY [facility] Last Admin: 06/08/18 10:32 Dose: 10 mg Pregabalin (Lyrica) 50 mg PO BID [facility] Last Admin: 06/08/18 21:51 Dose: 50 mg Rivaroxaban (Xarelto) 20 mg PO DAILY [facility] Last Admin: 06/08/18 10:39 Dose: 20 mg Senna/Docusate Sodium (Mona-Colace) 1 tab PO BID [facility] Last Admin: 06/08/18 21:51 Dose: 1 tab Tramadol HCl (Ultram) 50 mg PO TID [facility] Last Admin: 06/08/18 19:03 Dose: 50 mg Allergies Allergy/AdvReac Type Severity Reaction Status Date / Time penicillin G Allergy Severe Hives Verified 06/07/18 11:12 Home Medications Medication Instructions Recorded Confirmed Type carvedilol 12.5 mg PO BID 06/07/18 06/07/18 History cilostazol PO BID 06/07/18 History metformin 1,000 mg PO BID 06/07/18 06/07/18 History nifedipine 60 mg PO DAILY 06/07/18 06/07/18 History pantoprazole [Protonix] 40 mg PO DAILY 06/07/18 06/07/18 History prednisone 5 mg PO AC DINNER 06/07/18 06/07/18 History prednisone 10 mg PO DAILY 06/07/18 06/07/18 History pregabalin [Lyrica] 50 mg PO BID 06/07/18 06/07/18 History rivaroxaban [Xarelto] 20 mg PO DAILY 06/07/18 06/07/18 History rosuvastatin 40 mg PO DAILY 06/07/18 06/07/18 History tramadol 50 mg PO TID 06/07/18 06/07/18 History Results - Labs CBC & Chem 7: 06/08/18 06:36 06/08/18 06:36 Laboratory Results - last 24 hr 06/08/18 06/08/18 06/08/18 06:36 06:36 08:43 WBC 5.7 RBC 6.48 H Hgb 12.4 L Hct 38.9 L MCV 60.1 L MCH 19.1 L MCHC 31.8 L RDW 18.5 H Plt Count 253 MPV 8.4 Prelim Diff (Auto) Slide review pending Neut % (Auto) 74.7 H Lymph % (Auto) 12.6 [place] % (Auto) 12.1 H Eos % (Auto) 0.4 Baso % (Auto) 0.2 Neut # (Auto) 4.3 Lymph # (Auto) 0.7 L [place] # (Auto) 0.7 Eos # (Auto) 0.0 Baso # (Auto) 0.0 WBC Differential Manual diff final Seg Neuts % (Manual) 40 Band Neuts % (Manual) 23 H Lymphocytes % (Manual) 29 Monocytes % (Manual) 8 Abs Neuts (Manual) 3.6 Differential Comment . Toxic Granulation 1+ H Platelet Estimate Normal Platelet Morphology Enlarged H [place] Cells 1+ H Sodium 130 L Potassium 4.3 Chloride 96 L Carbon Dioxide 25.5 Anion Gap 9 BUN 52 H Creatinine 1.45 H Estimated GFR 50 L POC Glucose 295 H Random Glucose 250 H Calcium 8.0 L Magnesium 1.6 06/08/18 06/08/18 06/08/18 12:37 17:46 21:50 WBC RBC Hgb Hct MCV MCH MCHC RDW Plt Count MPV Prelim Diff (Auto) Neut % (Auto) Lymph % (Auto) [place] % (Auto) Eos % (Auto) Baso % (Auto) Neut # (Auto) Lymph # (Auto) [place] # (Auto) Eos # (Auto) Baso # (Auto) WBC Differential Seg Neuts % (Manual) Band Neuts % (Manual) Lymphocytes % (Manual) Monocytes % (Manual) Abs Neuts (Manual) Differential Comment Toxic Granulation Platelet Estimate Platelet Morphology [place] Cells Sodium Potassium Chloride Carbon Dioxide Anion Gap BUN Creatinine Estimated GFR POC Glucose 290 H 231 H 177 H Random Glucose Calcium Magnesium Microbiology 06/07/18 10:55 Blood - Peripheral Aerobic Blood Culture - Preliminary No growth in 1 day 06/07/18 10:55 Blood - Peripheral Anaerobic Blood Culture - Preliminary No growth in 1 day 06/07/18 11:00 Blood - Peripheral Aerobic Blood Culture - Preliminary No growth in 1 day 06/07/18 11:00 Blood - Peripheral Anaerobic Blood Culture - Preliminary No growth in 1 day - Imaging Impressions Foot MRI 06/07/18 00:00 CONCLUSION: Nonspecific soft tissue edema and swelling. No drainable abscess. No perceptible osteomyelitis. Aorta w/Runoff CTA 06/08/18 00:00 CONCLUSION: 1. Right superficial femoral artery graft is occluded. Fairly decent reconstitution of more distal vessels beginning at the level of the mid popliteal artery. 2. 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 3. Chronic atherosclerosis without acute occlusive disease proximally. 4. Patient has an acute small bowel obstruction related to an incarcerated appearing umbilical hernia. Extremity Arterial Study 06/08/18 00:00 CONCLUSION: 1. ABIs within the normal range bilaterally. Assessment and Plan - Assessment (1) Ulcer of right foot Code(s): L97.519 - Non-pressure chronic ulcer of other part of right foot with unspecified severity Status: Chronic Plan: Will await vascular evaluation/treatment prior to initiating any treatment to the foot. MRI results with no evidence of osteomyelitis present. Recommend to continue to keep lateral R foot wound stable and await vascular intervention, then allow further tissue demarcation (2) Osteomyelitis of right foot Code(s): M86.9 - Osteomyelitis, unspecified Status: Chronic Plan: Probable. Await MRI results to determine further treatment. (3) Diabetic foot infection Code(s): E11.628 - Type 2 diabetes mellitus with other skin complications; L08.9 - Local infection of the skin and subcutaneous tissue, unspecified Status: Acute (1) Ulcer of right foot Qualifiers: Non-pressure ulcer stage: with necrosis of muscle Qualified Code(s): L97.513 - Non-pressure chronic ulcer of other part of right foot with necrosis of muscle
--- NOTE | 2018-06-08 22:46 | ECG ---
Date Performed: 06/07/2018 Time Performed: 11:48:28 PTAGE: 58 years EKG: Sinus rhythm RIGHT BUNDLE BRANCH BLOCK MODERATE T-WAVE ABNORMALITY, CONSIDER LATERAL ISCHEMIA ABNORMAL ECG PREVIOUS TRACING : 12/02/2015 17.00 Since the previous tracing, no significant change noted DOCTOR: Pato Diaz Interpretating Date/Time 06/08/2018 22:44:29
[2018-06-08 23:40] VITALS: BP 117/71; PULSE 101; TEMP 98.5; O2SAT 93
== END 2018-06-09 05:05 | disposition left against medical advice (07) ==
LOC: NEPE 08:16 → NEDA 08:16 → NEPGCP 14:23
PROVIDERS: ADMIT Hospitalist; ATTEND Hospitalist

== ENCOUNTER 2018-06-09 09:54 | Inpatient (IN) ==
--- NOTE | 2018-06-09 10:43 | ED ---
HPI General Chief complaint: Recheck/Abnormal Lab/Rx Stated complaint: Dr sent/abnormal results Time Seen by Provider: 06/09/18 10:36 History of Present Illness HPI narrative: This is a 58-year-old male with a history if diabetes mellitus, hypopnea, kidney injury, peripheral vascular disease, bowel obstruction, hyperlipidemia, hypertension, who presents here today after leaving AMA at 3:00 this morning. The patient had a CT scan performed yesterday that showed a small bowel obstruction and incarcerated hernia. The patient states she has not had a bowel movement and is feeling "bloated. Patient is an extremely poor historian and could give no further history. I did speak with the previous admitting team who reported that he was being evaluated by vascular surgery as well as podiatry. Related Data Home Medications Medication Instructions Recorded Confirmed carvedilol 12.5 mg PO BID 06/07/18 06/07/18 cilostazol PO BID 06/07/18 metformin 1,000 mg PO BID 06/07/18 06/07/18 nifedipine 60 mg PO DAILY 06/07/18 06/07/18 pantoprazole [Protonix] 40 mg PO DAILY 06/07/18 06/07/18 prednisone 5 mg PO AC DINNER 06/07/18 06/07/18 prednisone 10 mg PO DAILY 06/07/18 06/07/18 pregabalin [Lyrica] 50 mg PO BID 06/07/18 06/07/18 rivaroxaban [Xarelto] 20 mg PO DAILY 06/07/18 06/07/18 rosuvastatin 40 mg PO DAILY 06/07/18 06/07/18 tramadol 50 mg PO TID 06/07/18 06/07/18 Allergies Allergy/AdvReac Type Severity Reaction Status Date / Time penicillin G Allergy Severe Hives Verified 06/07/18 11:12 Review of Systems ROS Unobtainable ROS Unobtainable: other (Review of systems limited secondary to the patient being an extremely poor historian.) ROS: all other systems reviewed are negative Constitutional Denies chills and Denies fever(s) Eyes Reports system reviewed and no additional complaints, except as docu ENT Reports system reviewed and no additional complaints, except as docu Cardiovascular Denies chest pain and Reports dyspnea Respiratory Denies chest congestion, Denies cough, Reports dyspnea and Reports wheezing Gastrointestinal Reports belching, Reports bloating, Denies constipation, Reports nausea and Denies vomiting Genitourinary Denies dysuria and Denies flank pain Musculoskeletal Reports numbness (Extremities), Reports tingling (Extremities) and Reports other (Poor circulation in his right foot. Patient's had previous ulcers on his lower extremities) Integumentary/Breasts Denies non-healing lesions and Denies skin ulcer Neurologic Reports system reviewed and no additional complaints, except as docu Hematologic/Lymphatic Comments: Poor circulation to his extremities. She has had previous amputation of toes on his right foot. [facility] Medical History Medical History Hyperlipemia (Acute) Neuropathy (Acute) Diabetes mellitus (Acute) HTN (hypertension) (Acute) Surgical History Surgical History H/O hernia repair (Acute) Status post right foot surgery (Acute) Social History Social History Substance History: No History of Abuse Second Hand Smoke Exposure: Yes Smoking Status: Current every day smoker Tobacco Type: Cigarettes How Often Do You Have a Drink Containing Alcohol: 4 or more times a week Recent Travel in [facility] within the Last 8 Weeks: No Recent Out of Country Travel within the Last 8 Weeks: No Immunization History Tetanus Immunization: <5 Years Hx Influenza Vaccine This Season: Yes Exam Narrative Exam Narrative: GENERAL: Well-developed well-nourished male in mild respiratory discomfort. SKIN: Focused skin assessment warm/dry. HEAD: Atraumatic. Normocephalic. EYES: Pupils equal and round. No scleral icterus. No injection or drainage. ENT: No nasal bleeding or discharge. Mucous membranes pink and moist. NECK: Trachea midline. Supple. CARDIOVASCULAR: Sinus tachycardia with a rate of 103. No murmur appreciated. RESPIRATORY: No accessory muscle use. Clear to auscultation. Breath sounds equal bilaterally. GASTROINTESTINAL: Abdomen soft, non-tender, nondistended. Hepatic and splenic margins not palpable. MUSCULOSKELETAL: blue coloration to right foot. s/p previous amputation right 4 , 5th toes. no draining lesions. NEUROLOGICAL: Awake and alert. No obvious cranial nerve deficits. Motor grossly within normal limits. Normal speech. Course Initial Documented Vital Signs Temperature 97.5 F L 06/09/18 09:57 Pulse Rate 108 H 06/09/18 09:57 Respiratory Rate 20 06/09/18 09:57 Blood Pressure 134/66 06/09/18 09:57 Pulse Oximetry 94 L 06/09/18 09:57 Last Documented Vital Signs Temperature 97.5 F L 06/09/18 09:57 Pulse Rate 113 H 06/09/18 10:04 Respiratory Rate 16 06/09/18 10:04 Blood Pressure 134/66 06/09/18 09:57 Pulse Oximetry 94 L 06/09/18 10:04 Medical Decision Making MDM Narrative Medical decision making narrative: This is a 58-year-old male who presents today after he was encouraged to come back after signing out AGAINST MEDICAL ADVICE at 3:00 this morning. Patient has a small bowel obstruction with incarcerated hernia. Patient also has severe peripheral vascular disease. He is a diabetic as well. Patient was discussed with Dr. Gia Reynoso's PA, who is coming down to evaluate the patient and write admission orders. He is refusing an NG tube at this point. He is complaining of low back pain. He has been given 2 mg of IV morphine. He is also been given 10 mg of IV Compazine. Differential Diagnosis Differential Diagnosis: Small bowel obstruction with incarcerated hernia versus peripheral vascular disease versus metabolic derangement Discharge Plan Discharge Disposition Patient Disposition: 30 Still Patient Discharge Details Diagnosis: SBO (small bowel obstruction), HTN (hypertension), PAD (peripheral artery disease), Diabetes mellitus, Neuropathy, Hyperlipemia, Status post right foot surgery, Incarcerated hernia Physicians Team ED Provider: Victoriano Monson Primary Care Provider: Gabriel Ariza Rxs /Orders / Referrals /Forms Prescriptions: No Action tramadol 50 mg Tablet 50 mg PO TID RF: 0 nifedipine 60 mg Tablet Extended Release 60 mg PO DAILY RF: 0 metformin 1,000 mg Tablet 1,000 mg PO BID RF: 0 carvedilol 6.25 mg Tablet 12.5 mg PO BID RF: 0 prednisone 5 mg Tablet 5 mg PO AC DINNER RF: 0 prednisone 10 mg Tablet 10 mg PO DAILY RF: 0 rosuvastatin 40 mg Tablet 40 mg PO DAILY RF: 0 pantoprazole [Protonix] 40 mg Tablet,Delayed Release (Dr/Ec) 40 mg PO DAILY RF: 0 cilostazol 50 mg Tablet PO BID RF: 0 rivaroxaban [Xarelto] 20 mg Tablet 20 mg PO DAILY RF: 0 pregabalin [Lyrica] 50 mg Capsule 50 mg PO BID RF: 0 Discharge Interventions Interventions: Vital Signs Last Done: 06/09/18 10:04 Status ED Status: With Doctor
[2018-06-09] MEDS ORDERED: Morphine Inj 4 MG/ML Vial IV.PUSH PRN (11:36)
--- NOTE | 2018-06-09 12:19 | P.HPIM ---
History of Present Illness Service: cp hospitalist Primary Care Physician: Gabriel Ariza Chief Complaint: Back pain, abdominal pain, N/V History of Present Illness: Mr. Guerrero is a 58 y/o male with hypertension, COPD, morbid obesity, diabetes mellitus with diabetic neuropathy, rheumatoid arthritis on methotrexate and daily steroid use, hyperlipidemia, GERD, lumbar degenerative disc disease with radiculopathy and spondylosis, major depression, obstructive sleep apnea, PAD with 2 stents placed RLE by Dr. Melara 2016, and history of osteomyelitis of the right foot with third and fifth toe amputation [address] Khoury. Patient was previously admitted on 06/07/18 for right foot infection. During that admission he was seen by Dr. Khoury and Dr. Galindo. He was initially evaluated with X-ray of foot (06/07/18) which noted soft tissue ulceration on plantar aspect of foot. Podiatry requested MRI and Vascular surgery consultation. MRI foot (06/07/18) noted nonspecific soft tissue edema and swelling , no drainable abscess, and no perceptible osteomyelitis. Dr. Galindo saw the pt in consultation and ordered a CTA of the aorta with runoff which revealed right superficial femoral artery graft is occluded, fairly decent reconstitution of more distal vessels beginning at the level of the mid popliteal artery, chronic severe three-vessel calf disease on the left, and chronic atherosclerosis without acute occlusive disease proximally. It also happened to reveal an acute small bowel obstruction related to an incarcerated appearing umbilical hernia. Yesterday in the hospital pt had complained of hiccups and was coughing and having some intermittent vomiting. The pt was quite anxious and claustrophobic in the CDU and ended up leaving AMA around 0300 this morning. Once the CTA results were reviewed this morning we tried contacting the pt to advise him to return to the hospital but when unable to we contacted his PCP office who was able to track him down and convince him to return to the ED for admission. He states that he had a similar issue with a SBO around 4 months ago and required NGT placement during an admission to [facility]. He did not require surgery at that time. Pt states that his large incisional hernia is typically reducible but today it is not. He complains mostly of low back pain and abdominal pain. He continues to have hiccups and nausea/dry heaves. He states that he passed a small amount of stool this morning. Minimal flatus. Past Medical Hx: Hypertension COPD Morbid obesity Diabetes mellitus with diabetic neuropathy Rheumatoid arthritis on methotrexate and daily steroid use Hyperlipidemia GERD Lumbar degenerative disc disease with radiculopathy and spondylosis Major depression Obstructive sleep apnea PAD History of osteomyelitis of the right foot with third and fifth toe amputation [address] Khoury. Past Surgical Hx: Colonoscopy/EGD Right lower extremity 2 stents placed 2017 with Minor Right foot amputation of third and fifth toe, ventral hernia repair Social history: Denies EtOH use Current tobacco use 2 PPD for the past 46 years Denies illicit drug use Family Hx: Noncontributory - Diagnosis (1) SBO (small bowel obstruction) (2) Diabetic foot infection (3) Incarcerated hernia Inpatient Certification: I certify that the inpatient services were ordered in accordance with Medicare regulations governing the order. This includes certification that hospital inpatient services are reasonable and necessary and in the case of services not specified as inpatient-only under 42 CFR 419.22(n), that they are appropriately provided as inpatient services in accordance to with the 2-midnight benchmark under 43 CFR 412.3(e) Estimated Total Length of Stay (Days): 3 Plans for Post Hospital Care: Not yet determined Review of Systems All other systems reviewed negative except as stated in HPI Constitutional: Denies chills, Denies fever(s) Eyes: Denies change in vision, Denies double vision Ears, Nose, Mouth, and Throat: Denies dizziness Cardiovascular: Denies chest pain, Denies shortness of breath Respiratory: Denies cough, Denies pain on inspiration, Denies shortness of breath, Denies wheezing Gastrointestinal: Reports abdominal pain, Reports bloating, Reports nausea, Reports vomiting Genitourinary: Denies urinary frequency, Denies urinary hesitancy Musculoskeletal: Reports back pain, Denies muscle weakness Skin/Breast: Denies rash Neurologic: Denies localized weakness, Denies tingling/numbness/burning sensations PMFSH - History History Provided By: Patient - Medical History Medical History: Medical History (Last Updated 06/09/18 @ 10:20 by Herman Dumas) Hyperlipemia (Acute) Neuropathy (Acute) Diabetes mellitus (Acute) HTN (hypertension) (Acute) - Surgical History Surgical History: Surgical History (Last Updated 06/09/18 @ 10:20 by Herman Dumas) H/O hernia repair (Acute) Status post right foot surgery (Acute) - Tobacco History Second Hand Smoke Exposure: Yes Tobacco Use In Past 30 Days: Yes Smoking Status: Current every day smoker Tobacco Type: Cigarettes - Alcohol History How Often Do You Have a Drink Containing Alcohol: 4 or more times a week - Substance Use History Substance History: No History of Abuse - Travel History Recent Travel in the [place] Within the Last 8 Weeks: No Recent Travel Out of the Country Within the Last 8 Weeks: No - Immunization History Tetanus Immunization: <5 Years Hx Influenza Vaccine This Season: Yes Medications and Allergies Allergies Allergy/AdvReac Type Severity Reaction Status Date / Time penicillin G Allergy Severe Hives Verified 06/07/18 11:12 Home Medications Medication Instructions Recorded Confirmed Type carvedilol 12.5 mg PO BID 06/07/18 06/07/18 History cilostazol PO BID 06/07/18 History metformin 1,000 mg PO BID 06/07/18 06/07/18 History nifedipine 60 mg PO DAILY 06/07/18 06/07/18 History pantoprazole [Protonix] 40 mg PO DAILY 06/07/18 06/07/18 History prednisone 5 mg PO AC DINNER 06/07/18 06/07/18 History prednisone 10 mg PO DAILY 06/07/18 06/07/18 History pregabalin [Lyrica] 50 mg PO BID 06/07/18 06/07/18 History rivaroxaban [Xarelto] 20 mg PO DAILY 06/07/18 06/07/18 History rosuvastatin 40 mg PO DAILY 06/07/18 06/07/18 History tramadol 50 mg PO TID 06/07/18 06/07/18 History Active Medications: Active Medications Sodium Chloride (Ns Inj) 1,000 mls @ 100 mls/hr IV.CONT .Q10H GARRET Morphine Sulfate (Morphine Inj) 3 mg IV.PUSH Q4H PRN PRN Reason: PAIN 6-10;IF UNABLE TO TAKE PO Morphine Sulfate (Morphine Inj) 2 mg IV.PUSH Q4H PRN PRN Reason: Pain 2-5;If Unable To Take Po Ondansetron HCl (Zofran Inj) 4 mg IV.PUSH Q4H PRN PRN Reason: nasuea, vomiting Pantoprazole Sodium (Protonix Inj) 40 mg IV.PUSH DAILY GARRET Sodium Chloride (Ns Flush) 2 ml IV.FLUSH BID GARRET Sodium Chloride (Ns Flush) 2 ml IV.FLUSH PRN PRN PRN Reason: FLUSH AFTER USING IV ACCESS Exam Vital signs: Vital Signs 06/09/18 09:57 06/09/18 10:04 Temperature 97.5 F L Pulse Rate 108 H 113 H Respiratory Rate 20 16 Blood Pressure 134/66 Pulse Oximetry 94 L 94 L Intake & Output 06/08/18 06/09/18 06/09/18 18:59 06:59 18:59 Weight 104.326 kg Narrative: GENERAL: NAD, AAOx3 SKIN: Warm and dry. HEENT: Atraumatic. Normocephalic. Pupils equal and round. No scleral icterus. No injection or drainage. No nasal bleeding or discharge. Mucous membranes pink and moist. NECK: Trachea midline. No JVD. CARDIO: Regular RESP: No accessory muscle use. Clear to auscultation. Breath sounds equal bilaterally. ABD: Minimal BS, non-tender, distended. Large incisional hernia, not able to be easily reduced. EXT: Nonhealing deep ulceration with what appears to be necrotic tissue present to posterior lateral aspect of the right foot with edema present. No drainage present NEURO: Awake and alert. Motor grossly within normal limits. Five out of 5 muscle strength in the arms and legs. Normal speech. PSYCH: Pt appears anxious Results - Labs CBC & Chem 7: 06/11/18 04:40 06/11/18 04:40 Caprini VTE Risk Assessment Caprini VTE Risk Assessment: Moderate/High Risk (score >= 2) Caprini Risk Assessment Model: Point Value = 1 Point Value = 2 Point Value = 3 Point Value = 5 Age 41-60 Minor surgery BMI > 25 kg/m2 Swollen legs Varicose veins or History of unexplained or recurrent spontaneous Oral contraceptives or hormone replacement Sepsis (< 1 month) Serious lung disease, including pneumonia (< 1 month) Abnormal pulmonary function Acute myocardial infarction Congestive heart failure (< 1 month) History of inflammatory bowel disease Medical patient at bed rest Age 61-74 Arthroscopic surgery Major open surgery (> 45 min) Laparoscopic surgery (> 45 min) Malignancy Confined to bed (> 72 hours) Immobilizing plaster cast Central venous access Age >= 75 History of VTE Family history of VTE Factor V Leiden Prothrombin [id number] Lupus anticoagulant Anticardiolipin antibodies Elevated serum homocysteine Heparin-induced thrombocytopenia Other congenital or acquired thrombophilia Stroke (< 1 month) Elective arthroplasty Hip, pelvis, or leg fracture Acute spinal cord injury (< 1 month) Prophylaxis Regimen: Total Risk Factor Score Risk Level Prophylaxis Regimen 0-1 Low Early ambulation 2 Moderate Order ONE of the following: *Sequential Compression Device (SCD) *Heparin 5000 units SQ BID 3-4 Higher Order ONE of the following medications: *Heparin 5000 units SQ TID *Enoxaparin/Lovenox 40 mg SQ daily (WT < 150 kg, CrCl > 30 mL/min) *Enoxaparin/Lovenox 30 mg SQ daily (WT < 150 kg, CrCl > 10-29 mL/min) *Enoxaparin/Lovenox 30 mg SQ BID (WT < 150 kg, CrCl > 30 mL/min) AND/OR *Sequential Compression Device (SCD) 5 or more Highest Order ONE of the following medications: *Heparin 5000 units SQ TID (Preferred with Epidurals) *Enoxaparin/Lovenox 40 mg SQ daily (WT < 150 kg, CrCl > 30 mL/min) *Enoxaparin/Lovenox 30 mg SQ daily (WT < 150 kg, CrCl > 10-29 mL/min) *Enoxaparin/Lovenox 30 mg SQ BID (WT < 150 kg, CrCl > 30 mL/min) AND *Sequential Compression Device (SCD) Assessment and Plan - Assessment (1) SBO (small bowel obstruction) Code(s): K56.609 - Unspecified intestinal obstruction, unspecified as to partial versus complete obstruction Status: Acute Plan: The pt is a 58 y/o male with hypertension, COPD, morbid obesity, diabetes mellitus with diabetic neuropathy, rheumatoid arthritis on methotrexate and daily steroid use, hyperlipidemia, GERD, lumbar degenerative disc disease with radiculopathy and spondylosis, major depression, obstructive sleep apnea, PAD with 2 stents placed RLE by Dr. Melara 2016, and history of osteomyelitis of the right foot with third and fifth toe amputation [address] Khoury. Patient was previously admitted on 06/07/18 for right foot infection but left AMA during the night on 06/09/18. Pt was contacted to return to the ED due to findings of acute SBO in incarcerated hernia on CTA prior to him leaving AMA. SBO Incarcerated hernia - Pt had a CTA of the aorta with runoff which incidentally revealed an acute small bowel obstruction related to an incarcerated appearing umbilical hernia. - Yesterday in the hospital pt had complained of hiccups and was coughing and having some intermittent vomiting. - He states that he had a similar issue with a SBO around 4 months ago and required NGT placement during an admission to [facility]. He did not require surgery at that time. Pt states that his large incisional hernia is typically reducible but today it is not. - NPO and place NGT to [facility] - General Surgery has been consulted, discussed the case with Dr. Lopez who is public relations account supervisor. - IVF - KUB and labs today - Antiemetics PRN - Record I&Os - Supportive care Diabetic foot wound - Patient has a history of osteomyelitis of the right foot with third and fifth toe amputation [address] Khoury[address] - X-ray of foot (06/07/18) --> Soft tissue ulceration on plantar aspect of foot. Amputation of the third and fifth toes as above. No acute bony abnormality. Remote proximal fifth metatarsal fracture. - MRI foot (06/07/18) --> Nonspecific soft tissue edema and swelling. No drainable abscess. No perceptible osteomyelitis. - Reconsult Podiatry - Dr. Galindo saw the pt in consultation on 06/08/18 and ordered a CTA of the aorta with runoff which revealed right superficial femoral artery graft is occluded, fairly decent reconstitution of more distal vessels beginning at the level of the mid popliteal artery, chronic severe three-vessel calf disease on the left, and chronic atherosclerosis without acute occlusive disease proximally. - Reconsult Vascular surgery, Dr. Galindo, he had discussed with Dr. Nielsen having the pt undergo evaluation with angiogram for further evaluation Acute kidney injury - Patient's baseline creatinine around 0.78 with estimated GFR 90-100 - In the ED on 06/07 his Cr was 1.89 - Patient received 2 L IVF in ER - continue NS IVF - Repeat BMP on 06/08 with Cr 1.45 - Repeat labs today Hypertension - Pt is NPO with NGT ordered - Vasotec PRN - Monitor BP Diabetes mellitus with diabetic neuropathy, - NovoLog SSI - Accu checks ACHS PAD - S/P stents placed to the RLE [address] Melara - Patient's home Xarelto is on hold due to NPO status/SBO Rheumatoid arthritis on methotrexate and daily steroid use, - Home steroids on hold Hyperlipidemia - Home statin on hold GERD - IV Protonix DVT prophylaxis with SCDs for now until General Surgery evaluates The exam, history, and the medical decision-making described in the above note were completed with the assistance of the mid-level provider. I reviewed and agree with the findings presented. I attest that I had a tmox-cr-lbye encounter with the patient on the same day, and personally performed and documented my assessment and findings in the medical record. (2) Diabetic foot infection Code(s): E11.628 - Type 2 diabetes mellitus with other skin complications; L08.9 - Local infection of the skin and subcutaneous tissue, unspecified Status: Acute (3) Incarcerated hernia Code(s): K46.0 - Unspecified abdominal hernia with obstruction, without gangrene Status: Acute
[2018-06-09] MEDS: Morphine Inj 4 MG/ML Vial IV.PUSH PRN ×2 (12:22→22:22)
[2018-06-09] MEDS: Pantoprazole Inj 40 MG Vial IV.PUSH SCH (12:22)
[2018-06-09] MEDS ORDERED: Dextrose 50% in Water 50 ML Vial IV.PUSH PRN (12:37)
[2018-06-09 12:42] LABS: INR 1.2 Ratio; Prothrombin Time 11.9 sec (9.8-11.6)
[2018-06-09 12:52] LABS: Calcium 7.8 mg/dL (8.5-10.1); Potassium 3.8 meq/L (3.5-5.1)
[2018-06-09 12:59] LABS: Baso % (Auto) 0.1 % (0.0-2.0); Eos % (Auto) 0.2 % (0.0-4.0); Hematocrit 37.4 % (39.0-51.0); Hemoglobin 12.3 gm/dL (13.0-17.0); Lymph # (Auto) 0.6 th/mm3 (1.0-4.8); Lymph % (Auto) 8.1 % (9.0-44.0); Mean Corpuscular Hemoglobin 19.6 pg (27.0-34.0); Mean Corpuscular Volume 59.2 fL (80.0-100.0); Mean Platelet Volume 8.6 fL (7.0-11.0); Mono # (Auto) 0.8 th/mm3 (0.0-0.9); Mono % (Auto) 11.5 % (0.0-8.0); Neut # (Auto) 5.7 th/mm3 (1.8-7.7); Neut % (Auto) 80.1 % (16.0-70.0); Platelet Count 305 th/mm3 (150-450); Red Blood Count 6.31 mil/mm3 (4.50-5.90); Red Cell Distribution Width 18.7 % (11.6-17.2); White Blood Count 7.1 th/mm3 (4.0-11.0)
--- NOTE | 2018-06-09 13:04 | P.PNVS ---
Subjective Subjective/Hospital Course: 58/M with non healing ulceration to his R lateral foot for a duration of 3M Full consult note written yesterday Pt left AMA around 0400 per ED RN Pt returned to the Emergency Department c/o nausea and "feeling worse". CTA results- acute small bowel obstruction/ R SFA occluded graft Objective Vital Signs / I&O: Vital Signs 06/09/18 09:57 06/09/18 10:04 Temperature 97.5 F L Pulse Rate 108 H 113 H Respiratory Rate 20 16 Blood Pressure 134/66 Pulse Oximetry 94 L 94 L Intake & Output 06/08/18 06/09/18 06/09/18 18:59 06:59 18:59 Weight 104.326 kg Physical Exam: GENERAL:obese 58/M/alert/GCS 15 SKIN: Warm and dry/Dry lateral right foot wound EYES: No scleral icterus. No injection or drainage. NECK: No JVD or lymphadenopathy. CARDIOVASCULAR: RRR GASTROINTESTINAL: midline incision well healed/+ incisional hernia MUSCULOSKELETAL: No cyanosis, or edema. Non palpable distal pulses LE warm w/ motor intact Laboratory Results - last 24 hr 06/09/18 11:20 PT 11.9 H INR 1.2 Assessment and Plan - Plan 58/M with a 3M hx of a non healing R foot ulceration and non palpable distal pulses CTA w/ acute small bowel obstruction/ Occluded R SFA graft Plan Consult General Surgery- SBO Insert NG tube Discussed R LE angiogram procedure with pt for potential revascularization Pt scheduled w/ Dr. Galindo tentatively on Wednesday06/13/18 Pt agreed w/ plan Consents obtained Will continue to follow Marianna Cormier NP [facility] [phone]
[2018-06-09 13:41] LABS: Lymphocytes 9 % (9-44); Metamyelocytes 2 % (0-1); Monocytes 18 % (0-8)
[2018-06-09 13:42] LABS: Ovalocytes 1+; Platelet Estimate Normal (Normal); Platelet Morphology Normal (Normal); Toxic Granulation 1+
--- NOTE | 2018-06-09 13:49 | XR ---
EXAM DATE: 06/09/2018 1:26 PM EDT AGE/SEX: 58 years / Male INDICATIONS: Abdominal pain. CLINICAL DATA: This is the patient's initial encounter. Patient reports that signs and symptoms have been present for 3 days and indicates a pain score of 9/10. MEDICAL/SURGICAL HISTORY: . Hypertension. Diabetes. None. [place] [facility] [place] W 3[place]/08/2018. . FINDINGS: Gaseous distention seen of the proximal small bowel in the left abdomen. Nasogastric tube has been p laced, tip in the distal stomach. Stomach is decompressed. CONCLUSION: Small bowel obstruction. Decompressed stomach after nasogastric tube placement. Electronically signed by: Timbo Hazel MD 06/09/2018 1:48 PM EDT
--- NOTE | 2018-06-09 17:29 | P.CONGS ---
[facility] Gen Surgery Consult Note Consult date: 06/09/18 Reason for consult: abdominal pain Narrative: The patient is a 58-year-old male with multiple medical conditions on methotrexate and daily steroids for rheumatoid arthritis who was an inpatient yesterday due to right foot infection. He been evaluated by podiatry and vascular surgery. The patient ended up leaving the hospital last night AGAINST MEDICAL ADVICE. This was just after he had a CTA with runoff. He was apparently having some dry heaving just prior to leaving the hospital. The patient had already left but the CTA showed an apparent small bowel obstruction. The patient was convinced to return to the hospital by his primary physician. He relates that he had some small amount of emesis overnight. He did have an NG tube placed in the emergency department with over 2 L of output. The patient has a history of ventral hernia repair with mesh about 8 years ago. He reports that one year after that he required laparotomy and lysis of adhesions at the site of the mesh. A few months ago the patient was treated nonoperatively for small bowel obstruction at [facility] per his report. Currently he is not complaining of abdominal pain. CTA with runoff showed small bowel obstruction likely related to incarcerated ventral hernia in addition to the vascular findings. Review of Systems All other systems reviewed negative except as stated in [facility] - History History Provided By: Patient - Medical History Medical History: Medical History (Last Updated 06/09/18 @ 10:20 by Herman Dumas) Hyperlipemia (Acute) Neuropathy (Acute) Diabetes mellitus (Acute) HTN (hypertension) (Acute) - Surgical History Surgical History: Surgical History (Last Updated 06/09/18 @ 10:20 by Herman Dumas) H/O hernia repair (Acute) Status post right foot surgery (Acute) - Tobacco History Second Hand Smoke Exposure: Yes Tobacco Use In Past 30 Days: Yes Smoking Status: Current every day smoker Tobacco Type: Cigarettes - Alcohol History How Often Do You Have a Drink Containing Alcohol: 4 or more times a week - Substance Use History Substance History: No History of Abuse - Travel History Recent Travel in the [place] Within the Last 8 Weeks: No Recent Travel Out of the Country Within the Last 8 Weeks: No - Immunization History Tetanus Immunization: <5 Years Hx Influenza Vaccine This Season: Yes Medications and Allergies Active Medications: Active Medications Collagenase (Santyl Oint) 1 applicatio TOPICAL DAILY [facility] Dexamethasone Sodium Phosphate (Decadron Inj) 2 mg IV.PUSH Q12HR [facility] Dextrose (D50w Vial) 50 ml IV.PUSH UNSCH PRN PRN Reason: PER HYPOGLYCEMIA PROTOCOL Enalaprilat (Vasotec Inj) 1.25 mg IV.PUSH Q6H PRN PRN Reason: systolic BP over 170 Glucagon (Glucagon Inj) 1 mg OTHER PRN PRN PRN Reason: for Hypoglycemia Protocol Heparin Sodium (Porcine) (Heparin Inj) 5,000 units SQ Q12H [facility] Sodium Chloride (Ns Inj) 1,000 mls @ 100 mls/hr IV.CONT .Q10H [facility] Insulin Aspart (Novolog Insulin Correctional Sugar Inj) 0 unit SQ ACHS [facility]; Protocol Lorazepam (Ativan Inj) 1 mg IV.PUSH Q6H PRN PRN Reason: ANXIETY Morphine Sulfate (Morphine Inj) 3 mg IV.PUSH Q4H PRN PRN Reason: PAIN 6-10;IF UNABLE TO TAKE PO Last Admin: 06/09/18 12:22 Dose: 3 mg Morphine Sulfate (Morphine Inj) 2 mg IV.PUSH Q4H PRN PRN Reason: Pain 2-5;If Unable To Take Po Ondansetron HCl (Zofran Inj) 4 mg IV.PUSH Q4H PRN PRN Reason: nasuea, vomiting Last Admin: 06/09/18 12:22 Dose: 4 mg Pantoprazole Sodium (Protonix Inj) 40 mg IV.PUSH DAILY [facility] Last Admin: 06/09/18 12:22 Dose: 40 mg Sodium Chloride (Ns Flush) 2 ml IV.FLUSH BID [facility] Sodium Chloride (Ns Flush) 2 ml IV.FLUSH PRN PRN PRN Reason: FLUSH AFTER USING IV ACCESS Allergies Allergy/AdvReac Type Severity Reaction Status Date / Time penicillin G Allergy Severe Hives Verified 06/07/18 11:12 Home Medications Medication Instructions Recorded Confirmed Type carvedilol 12.5 mg PO BID 06/07/18 06/07/18 History cilostazol PO BID 06/07/18 History metformin 1,000 mg PO BID 06/07/18 06/07/18 History nifedipine 60 mg PO DAILY 06/07/18 06/07/18 History pantoprazole [Protonix] 40 mg PO DAILY 06/07/18 06/07/18 History prednisone 5 mg PO AC DINNER 06/07/18 06/07/18 History prednisone 10 mg PO DAILY 06/07/18 06/07/18 History pregabalin [Lyrica] 50 mg PO BID 06/07/18 06/07/18 History rivaroxaban [Xarelto] 20 mg PO DAILY 06/07/18 06/07/18 History rosuvastatin 40 mg PO DAILY 06/07/18 06/07/18 History tramadol 50 mg PO TID 06/07/18 06/07/18 History Exam Vital signs: Vital Signs 06/09/18 09:57 06/09/18 10:04 06/09/18 14:47 Temperature 97.5 F L Pulse Rate 108 H 113 H 107 H Respiratory Rate 20 16 19 Blood Pressure 134/66 133/67 Pulse Oximetry 94 L 94 L Intake & Output 06/08/18 06/09/18 06/09/18 18:59 06:59 18:59 Output Total 2800 / 2800 Balance -2800 / -2800 Weight 104.326 kg Output: Gastric Drainage 2800 / 2800 Left Nare Nasogastric Tube 2800 / 2800 Narrative: GENERAL: Awake and alert. No acute distress. Cooperative. Obese. Appears older than stated age. HEAD: Normocephalic. Atraumatic. EYES: Pupils equal round and reactive to light bilaterally. No scleral icterus. ENT: Moist oral mucosa. NG tube in place. NECK: Trachea midline. CHEST: Nonlabored breathing. No respiratory distress. CARDIOVASCULAR: Regular rate and rhythm. ABDOMEN: Obese. Midline laparotomy scar. Fairly large ventral hernia superior to the umbilicus with incarcerated bowel. It is minimally tender. There are no skin changes. The remainder of the abdomen is soft and nontender. SKIN: Warm, dry, nonjaundiced. Results - Labs 06/09/18 11:20 06/09/18 11:20 Abnormal lab results 06/09/18 06/09/18 06/09/18 Range/Units 11:20 11:20 11:20 RBC 6.31 H (4.50-5.90) mil/mm3 Hgb 12.3 L (13.0-17.0) gm/dL Hct 37.4 L (39.0-51.0) % MCV 59.2 L (80.0-100.0) fL MCH 19.6 L (27.0-34.0) pg RDW 18.7 H (11.6-17.2) % Neut % (Auto) 80.1 H (16.0-70.0) % Lymph % (Auto) 8.1 L (9.0-44.0) % Calloway % (Auto) 11.5 H (0.0-8.0) % Lymph # (Auto) 0.6 L (1.0-4.8) th/mm3 Band Neuts % (Manual) 32 H (0-6) % Monocytes % (Manual) 18 H (0-8) % Metamyelocytes % (Man) 2 H (0-1) % Toxic Granulation 1+ H (None) Ovalocytes 1+ H (None) PT 11.9 H (9.8-11.6) sec Sodium 129 L (136-145) meq/L Chloride 93 L (98-107) meq/L BUN 68 H (7-18) mg/dL Creatinine 1.73 H (0.60-1.30) mg/dL Estimated GFR 40 L (>89) mL/min Random Glucose 230 H (74-106) mg/dL Calcium 7.8 L (8.5-10.1) mg/dL Diabetes panel 06/09/18 Range/Units 11:20 Sodium 129 L (136-145) meq/L Potassium 3.8 (3.5-5.1) meq/L Chloride 93 L (98-107) meq/L Carbon Dioxide 22.0 (21.0-32.0) meq/L BUN 68 H (7-18) mg/dL Creatinine 1.73 H (0.60-1.30) mg/dL Calcium 7.8 L (8.5-10.1) mg/dL Calcium panel 06/09/18 Range/Units 11:20 Calcium 7.8 L (8.5-10.1) mg/dL Pituitary panel 06/09/18 Range/Units 11:20 Sodium 129 L (136-145) meq/L Potassium 3.8 (3.5-5.1) meq/L Chloride 93 L (98-107) meq/L Carbon Dioxide 22.0 (21.0-32.0) meq/L BUN 68 H (7-18) mg/dL Creatinine 1.73 H (0.60-1.30) mg/dL Calcium 7.8 L (8.5-10.1) mg/dL Adrenal panel 06/09/18 Range/Units 11:20 Sodium 129 L (136-145) meq/L Potassium 3.8 (3.5-5.1) meq/L Chloride 93 L (98-107) meq/L Carbon Dioxide 22.0 (21.0-32.0) meq/L BUN 68 H (7-18) mg/dL Creatinine 1.73 H (0.60-1.30) mg/dL Calcium 7.8 L (8.5-10.1) mg/dL All other labs normal. - Imaging CT scan - abdomen: report reviewed, image reviewed CT scan - pelvis: report reviewed, image reviewed Assessment and Plan - Assessment (1) Incarcerated ventral hernia Code(s): K46.0 - Unspecified abdominal hernia with obstruction, without gangrene Status: Acute (2) Small bowel obstruction Code(s): K56.609 - Unspecified intestinal obstruction, unspecified as to partial versus complete obstruction Status: Acute - Plan He does not have signs or symptoms of ischemia. He is also on Xarelto. The patient is quite high risk for surgical intervention. Will attempt nonoperative management. Continue decompression with nasogastric tube.
[2018-06-09] MEDS: Sod Chloride 0.9% Inj 1,000 ML IV.CONT SCH ×2 (18:08→22:19)
[2018-06-09] MEDS: Heparin - SQ 10,000 UNITS/ML Vial SQ SCH (18:17)
[2018-06-09] MEDS: Insulin NovoLOG Aspart Correctional Sugar Inj SQ SCH ×2 (18:26→20:01)
[2018-06-10] MEDS: Heparin - SQ 10,000 UNITS/ML Vial SQ SCH ×2 (02:31→14:25)
[2018-06-10] MEDS: Morphine Inj 4 MG/ML Vial IV.PUSH PRN ×3 (03:42→18:52)
[2018-06-10 06:04] LABS: Baso % (Auto) 0.2 % (0.0-2.0); Eos % (Auto) 0.2 % (0.0-4.0); Hematocrit 37.1 % (39.0-51.0); Hemoglobin 11.8 gm/dL (13.0-17.0); Lymph # (Auto) 0.8 th/mm3 (1.0-4.8); Lymph % (Auto) 7.4 % (9.0-44.0); Mean Corpuscular HGB Conc 31.8 % (32.0-36.0); Mean Corpuscular Hemoglobin 18.9 pg (27.0-34.0); Mean Corpuscular Volume 59.6 fL (80.0-100.0); Mean Platelet Volume 8.7 fL (7.0-11.0); Mono # (Auto) 0.8 th/mm3 (0.0-0.9); Neut # (Auto) 8.9 th/mm3 (1.8-7.7); Neut % (Auto) 84.2 % (16.0-70.0); Platelet Count 246 th/mm3 (150-450); Red Blood Count 6.22 mil/mm3 (4.50-5.90); Red Cell Distribution Width 18.8 % (11.6-17.2); White Blood Count 10.6 th/mm3 (4.0-11.0)
[2018-06-10 06:28] LABS: Calcium 7.6 mg/dL (8.5-10.1); Carbon Dioxide 22.8 meq/L (21.0-32.0); Magnesium 1.9 mg/dL (1.5-2.5); Potassium 3.8 meq/L (3.5-5.1)
[2018-06-10] MEDS: Pantoprazole Inj 40 MG Vial IV.PUSH SCH (08:22)
[2018-06-10] MEDS: Insulin NovoLOG Aspart Correctional Sugar Inj SQ SCH ×4 (08:25→20:50)
[2018-06-10] MEDS: Sod Chloride 0.9% Inj 1,000 ML IV.CONT SCH ×2 (08:25→18:38)
[2018-06-10] MEDS ORDERED: Collagenase Oint 30 GM Tube TOPICAL SCH (09:00)
--- NOTE | 2018-06-10 10:52 | P.PNIM ---
Subjective Interval history: Pt reports that his abd discomfort is much better today He is still having some hiccups +flatus this morning, no BM Physical Exam Vital signs: Vital Signs 06/09/18 14:47 06/09/18 16:00 06/09/18 20:00 Temperature 97.4 F L Pulse Rate 107 H 111 H 103 H Respiratory Rate 19 24 Blood Pressure 133/67 135/63 Pulse Oximetry 94 L 06/09/18 20:16 06/10/18 00:09 06/10/18 04:14 Temperature 96.2 F L 97.1 F L 97.2 F L Pulse Rate 111 H 103 H 100 H Respiratory Rate 21 21 21 Blood Pressure 120/64 128/69 124/64 Pulse Oximetry 93 L 93 L 93 L 06/10/18 08:00 Temperature 96.9 F L Pulse Rate 102 H Respiratory Rate 21 Blood Pressure 147/80 H Pulse Oximetry 94 L Intake & Output 06/09/18 06/10/18 06/10/18 18:59 06:59 18:59 Intake Total 0 / 0 1000 / 1000 Output Total 2950 / 2950 2700 / 2700 Balance -2950 / -2950 -1700 / -1700 Weight 104.326 kg 104 kg Intake: IV 1000 / 1000 NS Inj 1,000 ML @ 100 mls/hr IV 1000 / 1000 .CONT .Q10H [facility] Rx#:[id number] Oral 0 / 0 Output: Urine 150 / 150 1000 / 1000 Gastric Drainage 2800 / 2800 1700 / 1700 Left Nare Nasogastric Tube 2800 / 2800 1700 / 1700 Narrative: GENERAL: NAD, AAOx3 CARDIO: Regular RESP: No accessory muscle use. Clear to auscultation. Breath sounds equal bilaterally. ABD: Absent BS, non-tender, less distended. Large incisional hernia, not able to be easily reduced. EXT: Nonhealing deep ulceration with what appears to be necrotic tissue present to posterior lateral aspect of the right foot with edema present. No drainage present. Mottling of the skin surrounding the distal aspect of the right foot and toes, stable Results - Labs CBC & Chem 7: 06/10/18 04:43 06/10/18 04:37 Laboratory Results - last 24 hr 06/09/18 06/09/18 06/09/18 11:20 11:20 11:20 WBC 7.1 RBC 6.31 H Hgb 12.3 L Hct 37.4 L MCV 59.2 L MCH 19.6 L MCHC 33.0 RDW 18.7 H Plt Count 305 MPV 8.6 Prelim Diff (Auto) Slide review pending Neut % (Auto) 80.1 H Lymph % (Auto) 8.1 L Castro % (Auto) 11.5 H Eos % (Auto) 0.2 Baso % (Auto) 0.1 Neut # (Auto) 5.7 Lymph # (Auto) 0.6 L Castro # (Auto) 0.8 Eos # (Auto) 0.0 Baso # (Auto) 0.0 WBC Differential Manual diff final Seg Neuts % (Manual) 39 Band Neuts % (Manual) 32 H Lymphocytes % (Manual) 9 Monocytes % (Manual) 18 H Metamyelocytes % (Man) 2 H Abs Neuts (Manual) 5.2 Differential Comment . Toxic Granulation 1+ H Platelet Estimate Normal Platelet Morphology Normal Ovalocytes 1+ H PT 11.9 H INR 1.2 Sodium 129 L Potassium 3.8 Chloride 93 L Carbon Dioxide 22.0 Anion Gap 14 BUN 68 H Creatinine 1.73 H Estimated GFR 40 L POC Glucose Random Glucose 230 H Calcium 7.8 L Magnesium 06/09/18 06/09/18 06/10/18 18:15 19:51 04:37 WBC RBC Hgb Hct MCV MCH MCHC RDW Plt Count MPV Prelim Diff (Auto) Neut % (Auto) Lymph % (Auto) Castro % (Auto) Eos % (Auto) Baso % (Auto) Neut # (Auto) Lymph # (Auto) Castro # (Auto) Eos # (Auto) Baso # (Auto) WBC Differential Seg Neuts % (Manual) Band Neuts % (Manual) Lymphocytes % (Manual) Monocytes % (Manual) Metamyelocytes % (Man) Abs Neuts (Manual) Differential Comment Toxic Granulation Platelet Estimate Platelet Morphology Ovalocytes PT INR Sodium 131 L Potassium 3.8 Chloride 96 L Carbon Dioxide 22.8 Anion Gap 12 BUN 69 H Creatinine 1.42 H Estimated GFR 51 L POC Glucose 197 H 180 H Random Glucose 143 H Calcium 7.6 L Magnesium 1.9 06/10/18 06/10/18 04:43 07:33 WBC 10.6 RBC 6.22 H Hgb 11.8 L Hct 37.1 L MCV 59.6 L MCH 18.9 L MCHC 31.8 L RDW 18.8 H Plt Count 246 MPV 8.7 Prelim Diff (Auto) Neut % (Auto) 84.2 H Lymph % (Auto) 7.4 L Castro % (Auto) 8.0 Eos % (Auto) 0.2 Baso % (Auto) 0.2 Neut # (Auto) 8.9 H Lymph # (Auto) 0.8 L Castro # (Auto) 0.8 Eos # (Auto) 0.0 Baso # (Auto) 0.0 WBC Differential . Seg Neuts % (Manual) Band Neuts % (Manual) Lymphocytes % (Manual) Monocytes % (Manual) Metamyelocytes % (Man) Abs Neuts (Manual) Differential Comment Auto diff final Toxic Granulation Platelet Estimate Platelet Morphology Ovalocytes PT INR Sodium Potassium Chloride Carbon Dioxide Anion Gap BUN Creatinine Estimated GFR POC Glucose 157 H Random Glucose Calcium Magnesium - Imaging Impressions Abdomen X-Ray 06/09/18 00:00 CONCLUSION: Small bowel obstruction. Decompressed stomach after nasogastric tube placement. Assessment and Plan - Assessment (1) SBO (small bowel obstruction) Code(s): K56.609 - Unspecified intestinal obstruction, unspecified as to partial versus complete obstruction Status: Acute Plan: The pt is a 58 y/o male with hypertension, COPD, morbid obesity, diabetes mellitus with diabetic neuropathy, rheumatoid arthritis on methotrexate and daily steroid use, hyperlipidemia, GERD, lumbar degenerative disc disease with radiculopathy and spondylosis, major depression, obstructive sleep apnea, PAD with 2 stents placed RLE by Dr. Melara 2016, and history of osteomyelitis of the right foot with third and fifth toe amputation [address] Khoury. Patient was previously admitted on 06/07/18 for right foot infection but left AMA during the night on 06/09/18. Pt was contacted to return to the ED due to findings of acute SBO in incarcerated hernia on CTA prior to him leaving AMA. SBO Incarcerated hernia - Pt had a CTA of the aorta with runoff which incidentally revealed an acute small bowel obstruction related to an incarcerated appearing umbilical hernia. - Yesterday in the hospital pt had complained of hiccups and was coughing and having some intermittent vomiting. - He states that he had a similar issue with a SBO around 4 months ago and required NGT placement during an admission to [facility]. He did not require surgery at that time. Pt states that his large incisional hernia is typically reducible but was not at admission. - NPO - Cont. NGT to [facility], pt had out of 4000ml of fluid since placement - General Surgery is following. - IVF - Antiemetics PRN - Record I&Os - Supportive care Diabetic foot wound - Patient has a history of osteomyelitis of the right foot with third and fifth toe amputation [address] Khoury[address] - X-ray of foot (06/07/18) --> Soft tissue ulceration on plantar aspect of foot. Amputation of the third and fifth toes as above. No acute bony abnormality. Remote proximal fifth metatarsal fracture. - MRI foot (06/07/18) --> Nonspecific soft tissue edema and swelling. No drainable abscess. No perceptible osteomyelitis. - Reconsult Podiatry - Dr. Galindo saw the pt in consultation on 06/08/18 and ordered a CTA of the aorta with runoff which revealed right superficial femoral artery graft is occluded, fairly decent reconstitution of more distal vessels beginning at the level of the mid popliteal artery, chronic severe three-vessel calf disease on the left, and chronic atherosclerosis without acute occlusive disease proximally. - Appreciate reconsult from Vascular surgery, Dr. Galindo - Likely evaluation with angiogram next week. - Cont. Santyl daily Acute kidney injury - Patient's baseline creatinine around 0.78 with estimated GFR 90-100 - In the ED on 06/07 his Cr was 1.89 - Patient received 2 L IVF in ER - continue NS IVF - Repeat BMP on 06/08 with Cr 1.45 - Repeat labs in the ED noted elevation in the Cr to 1.73, repeat labs on 06/10 with Cr 1.42 - Monitor labs Hypertension - Pt is NPO with NGT ordered - Vasotec PRN - Monitor BP Diabetes mellitus with diabetic neuropathy, - NovoLog SSI - Accu checks ACHS PAD - S/P stents placed to the RLE [address] Melara - Patient's home Xarelto is on hold due to NPO status/SBO Rheumatoid arthritis on methotrexate and daily steroid use, - Home steroids on hold - Give Decadron 2mg BID Hyperlipidemia - Home statin on hold GERD - IV Protonix DVT prophylaxis with Heparin 5000units Q12H The exam, history, and the medical decision-making described in the above note were completed with the assistance of the mid-level provider. I reviewed and agree with the findings presented. I attest that I had a [id number] encounter with the patient on the same day, and personally performed and documented my assessment and findings in the medical record. (2) Diabetic foot infection Code(s): E11.628 - Type 2 diabetes mellitus with other skin complications; L08.9 - Local infection of the skin and subcutaneous tissue, unspecified Status: Acute (3) Incarcerated hernia Code(s): K46.0 - Unspecified abdominal hernia with obstruction, without gangrene Status: Acute
--- NOTE | 2018-06-10 13:10 | P.PNGS ---
Subjective Interval history: States he has been passing quite a bit of flatus. NG still with fairly high output. Denies abdominal pain. Physical Exam Vital signs: Vital Signs 06/09/18 14:47 06/09/18 16:00 06/09/18 20:00 Temperature 97.4 F L Pulse Rate 107 H 111 H 103 H Respiratory Rate 19 24 Blood Pressure 133/67 135/63 Pulse Oximetry 94 L 06/09/18 20:16 06/10/18 00:09 06/10/18 04:14 Temperature 96.2 F L 97.1 F L 97.2 F L Pulse Rate 111 H 103 H 100 H Respiratory Rate 21 21 21 Blood Pressure 120/64 128/69 124/64 Pulse Oximetry 93 L 93 L 93 L 06/10/18 08:00 Temperature 96.9 F L Pulse Rate 102 H Respiratory Rate 21 Blood Pressure 147/80 H Pulse Oximetry 94 L Intake & Output 06/09/18 06/10/18 06/10/18 18:59 06:59 18:59 Intake Total 0 / 0 1000 / 1000 Output Total 2950 / 2950 2700 / 2700 Balance -2950 / -2950 -1700 / -1700 Weight 104.326 kg 104 kg Intake: IV 1000 / 1000 NS Inj 1,000 ML @ 100 mls/hr IV 1000 / 1000 .CONT .Q10H [facility] Rx#:[id number] Oral 0 / 0 Output: Urine 150 / 150 1000 / 1000 Gastric Drainage 2800 / 2800 1700 / 1700 Left Nare Nasogastric Tube 2800 / 2800 1700 / 1700 Narrative: NAD Abd: obese, large incarcerated ventral hernia is soft, ntd. NG with high volume bilious output Assessment and Plan - Assessment (1) Incarcerated ventral hernia Code(s): K46.0 - Unspecified abdominal hernia with obstruction, without gangrene Status: Acute (2) Small bowel obstruction Code(s): K56.609 - Unspecified intestinal obstruction, unspecified as to partial versus complete obstruction Status: Acute - Plan 58 M with large incarcerated ventral hernia. Continue attempt at conservative treatment. He is passing flatus but continues to have ngt output. Ok for ice chips.
--- NOTE | 2018-06-10 19:11 | MB ---
cc: Adriano Barone DPM DATE: 06/10/2018 REASON FOR CONSULTATION: Right lower extremity ischemic ulcer. HISTORY OF PRESENT ILLNESS: This is a 58-year-old male with multiple comorbidities. The patient was just recently seen on a prior admission by Dr. Khoury and Dr. Galindo. He was evaluated and there was noted to be occluded right superficial femoral artery graft. The plan is for vascular intervention this coming Wednesday. Currently, I am seeing the patient at bedside. He has an NG tube and he said he is feeling a lot better. Upon relating the past medical history with his right foot, he has a sore. It was debrided and has struggled healing. He does have a history of lesser digit amputation of the right foot per Dr. Khoury. PAST MEDICAL HISTORY: Hypertension, COPD, morbid obesity, diabetes with diabetic neuropathy, rheumatoid arthritis on methotrexate, hyperlipidemia, GERD, lumbar degenerative disk disease with radiculopathy, major depression, obstructive sleep apnea, PAD, osteomyelitis of the right foot needing amputation of the lesser digits. PAST SURGICAL HISTORY: As previously stated. However, right lower extremity had [address] Melara in 2017 and ventral hernia repair. SOCIAL HISTORY: Denies alcohol. Current tobacco, 2 packs per day for 46 years. Denies drug use. OUTPATIENT MEDICATIONS: Reviewed. INPATIENT MEDICATIONS: 1. Collagenase. 2. Decadron. 3. Dextrose. 4. Vasotec 5. Glucagon. 6. Insulin. 7. Ativan 8. P.r.n. pain medications. 9. Zofran. 10. Protonix. ALLERGIES: PENICILLIN G. PHYSICAL EXAMINATION: VITAL SIGNS: Temperature 98.1, pulse rate 104, respiratory rate 22, blood pressure 147/63. He is satting 94% on room air. GENERAL: This is an alert and oriented gentleman seen at bedside. He has an NG tube in place. EXTREMITIES: Right lower extremity is examined. There is noted to be a punched out mid plantar lateral hindfoot eschar. Depth is varying up to about 4 and 5 mm, the greatest width appears to be 4.5 cm, greatest length approximately 6 cm. It is tender to palpate, but there is no active drainage. There is no bone exposed. There is minimal periwound erythema. The base of the wound appears to be eschar ischemic in nature. The foot has a blue tint to it. Pedal pulses are significantly decreased. There is chronic edema of the bilateral extremities. Left lower extremity is free from any infection or ulcerative lesion. Sensation appears to be intact to deep pressure, not to light touch. There is good alignment of the digits, forefoot, hindfoot or ankle. Right lower extremity, there is absent fourth and fifth digits with a well healed amputation site. LABORATORY FINDINGS: White blood cell 10, hemoglobin and hematocrit, 11 and 36, platelet count is 246. PT 11.1, INR 1.2. ASSESSMENT AND PLAN: Right lower extremity peripheral vascular disease with ischemic ulcer. The patient is undergoing evaluation by vascular surgery coming Wednesday. It appears the patient has been seen by general surgery. It appears that we are attempting conservative care regarding the large incarcerated ventral hernia. He is only okay for ice chips at this time. I will follow along, awaiting vascular intervention. The patient may need debridement with wound VAC application given the depth of the wound. For now Santyl can be applied daily with a stick-on occlusive bandage. I would recommend no Jamel wrap around the foot. HERACLIO Valdez/martha , 04:59 PM , 05:07 PM
[2018-06-11] MEDS: Heparin - SQ 10,000 UNITS/ML Vial SQ SCH (02:43)
[2018-06-11] MEDS: Morphine Inj 4 MG/ML Vial IV.PUSH PRN (02:44)
[2018-06-11] MEDS: Sod Chloride 0.9% Inj 1,000 ML IV.CONT SCH (05:22)
[2018-06-11 05:32] LABS: Calcium 7.7 mg/dL (8.5-10.1); Carbon Dioxide 24.5 meq/L (21.0-32.0); Potassium 3.7 meq/L (3.5-5.1)
[2018-06-11 05:56] LABS: Baso % (Auto) 0.1 % (0.0-2.0); Eos % (Auto) 0.1 % (0.0-4.0); Hematocrit 35.1 % (39.0-51.0); Hemoglobin 11.3 gm/dL (13.0-17.0); Lymph # (Auto) 0.5 th/mm3 (1.0-4.8); Mean Corpuscular HGB Conc 32.1 % (32.0-36.0); Mean Corpuscular Hemoglobin 18.9 pg (27.0-34.0); Mean Corpuscular Volume 58.8 fL (80.0-100.0); Mean Platelet Volume 8.5 fL (7.0-11.0); Mono # (Auto) 1.1 th/mm3 (0.0-0.9); Mono % (Auto) 9.3 % (0.0-8.0); Neut # (Auto) 9.8 th/mm3 (1.8-7.7); Neut % (Auto) 86.5 % (16.0-70.0); Platelet Count 263 th/mm3 (150-450); Red Blood Count 5.98 mil/mm3 (4.50-5.90); Red Cell Distribution Width 18.4 % (11.6-17.2); White Blood Count 11.4 th/mm3 (4.0-11.0)
== END 2018-06-11 07:52 | disposition left against medical advice (07) ==
LOC: NEPC 09:54 → NEDA 11:16 → N07 15:43
PROVIDERS: ADMIT Hospitalist; ATTEND Hospitalist